=== PATIENT | male | born 1945 | race Caucasian/White ===

== ENCOUNTER 2023-06-08 13:52 | Outpatient (OUT) | payer MEDICARE, OTHER, SELFPAY ==
[2023-06-08 14:26] LABS: Estimated Average Glucose 203 mg/dL; Glycohemoglobin A1C 8.7 % (4.5-6.2)
== END 2023-06-08 13:53 | disposition home or self-care (01) ==
LOC: LAB 13:56
PROVIDERS: PCP Family Medicine; Visit Provider Family Medicine
DX: E11.65 Type 2 diabetes mellitus with hyperglycemia (principal)
CPT/HCPCS: 36415; 83036

== ENCOUNTER 2023-12-14 14:56 | Outpatient (OUT) | payer MEDICARE, OTHER, SELFPAY ==
[2023-12-14 15:18] LABS: Basophils Percent Auto 0.4 % (0.2-2.0); Eosinophils Absolute Auto 0.1 10^3/uL (0.0-0.7); Eosinophils Percent Auto 1.2 % (0.9-7.0); Hematocrit 36.3 % (42.0-54.0); Hemoglobin 11.7 g/dL (14.0-18.0); Lymphocytes Absolute Auto 2.9 10^3/uL (1.2-3.8); Lymphocytes Percent Auto 28.7 % (20.5-60.0); Mean Corpuscular HGB Conc 32.2 g/dL (29.9-35.2); Mean Corpuscular Hemoglobin 29.2 pg (25.9-34.0); Mean Corpuscular Volume 90.5 fL (80.0-94.0); Mean Platelet Volume 10.2 fL (9.5-13.5); Monocytes Absolute Auto 0.5 10^3/uL (0.3-0.8); Monocytes Percent Auto 4.6 % (1.7-12.0); Neutrophils Absolute Auto 6.4 10^3/uL (1.4-6.5); Neutrophils Percent Auto 63.1 % (43.0-75.0); Platelet Count 189 10^3/uL (150-450); Red Blood Count 4.01 10^6/uL (4.70-6.10); White Blood Count 10.1 10^3/uL (4.0-11.0)
[2023-12-14 15:23] LABS: Microalbumin Urine Random <1.3 mg/dL (<=30.0)
[2023-12-14 15:54] LABS: Alanine Aminotransferase 42 U/L (16-63); Albumin Globulin Ratio 0.9; Albumin Level 3.7 g/dL (3.4-5.0); Alkaline Phosphatase 97 U/L (46-116); Anion Gap 14.2; Aspartate Amino Transferase 46 U/L (15-37); BUN Creatinine Ratio 13.9; Bilirubin Direct 0.2 mg/dL (0.0-0.2); Bilirubin Total 0.6 mg/dL (0.2-1.0); Calcium 9.5 mg/dL (8.5-10.1); Carbon Dioxide 26.1 mmol/L (21.0-32.0); Chloride 103 mmol/L (98-107); Chol HDL Ratio 2.7; Cholesterol 96 mg/dL (<=200); Estimated GFR (African America 44 (>=60); Estimated GFR (Non-African Ame 37 (>=60); Globulin 4.1 g/dL; Glucose 179 mg/dL (74-106); HDL Cholesterol 36 mg/dL (40-60); Potassium 4.3 mmol/L (3.5-5.1); Prostate Specific Antigen Dx 1.12 ng/mL (<=4.00); Sodium 139 mmol/L (136-145); Total Protein 7.8 g/dL (6.4-8.2); Triglycerides 148 mg/dL (<=150); VLDL CHOLESTEROL 29.6 mg/dL
[2023-12-14 15:56] LABS: Estimated Average Glucose 151 mg/dL; Glycohemoglobin A1C 6.9 % (4.5-6.2)
== END 2023-12-14 14:57 | disposition home or self-care (01) ==
LOC: LAB 14:58
PROVIDERS: PCP Family Medicine; Visit Provider Family Medicine
DX: E78.5 Hyperlipidemia, unspecified (principal); E11.65 Type 2 diabetes mellitus with hyperglycemia; I10 Essential (primary) hypertension; Z79.899 Other long term (current) drug therapy; Z12.5 Encounter for screening for malignant neoplasm of prostate; E55.9 Vitamin D deficiency, unspecified
CPT/HCPCS: 36415; 80048; 80061; 80076; 82043; 82306; 83036; 84153; 84443; 85025

== ENCOUNTER 2024-06-11 14:44 | Outpatient (OUT) | payer MEDICARE, OTHER, SELFPAY ==
--- OUTSIDE RECORDS SUMMARY | 2024-06-11 15:04 | XMS_ITS | CCD ---
Author Organization [facility] Inform ion Partnership [facility] Care Team Providers Care Fugitive Detective Name Role Phone FAWWAD, TRAYLOR H Attending Unavailable FAWWAD, TRAYLOR H Admitting Unavailable FAWWAD, TRAYLOR H Primary Care Unavailable DR ADIEL TANNER V Consulting Unavailable FAWWAD, TRAYLOR H Consulting Unavailable MATT CAMARGO Attending Unavailable MATT CAMARGO Admitting Unavailable MATT CAMARGO Consulting Unavailable NADERER, DR CASH Mireles Primary Care Unavailable FAWWAD, TRAYLOR H Attending Unavailable FAWWAD, TRAYLOR H Admitting Unavailable FAWWAD, TRAYLOR H Primary Care Unavailable SETH, DR ALVARO Jarvis Consulting Unavailable NGHIA YEE Consulting Unavailable FAWWAD, TRAYLOR H Consulting Unavailable FAWWAD, TRAYLOR H Primary Care Unavailable FAWWAD, TRAYLOR H Attending Unavailable FAWWAD, TRAYLOR H Admitting Unavailable FAWWAD, TRAYLOR H Consulting Unavailable FAWWAD, TRAYLOR H Attending Unavailable FAWWAD, TRAYLOR H Admitting Unavailable FAWWAD, TRAYLOR H Primary Care Unavailable DR ALVARO REYNOLDS Consulting Unavailable FAWWAD, TRAYLOR H Consulting Unavailable FAWWAD, TRAYLOR H Primary Care Unavailable HENRRY, RJ Consulting Unavailable HENRRY, RJ Attending Unavailable HENRRY, RJ Admitting Unavailable FAWWAD, TRAYLOR H Primary Care Unavailable HENRRY, RJ Admitting Unavailable HENRRY, JR Consulting Unavailable HENRRY, RJ Attending Unavailable HENRRY, RJ Admitting Unavailable KEISHA SALESA Attending Unavailable NORIS, DR CASH Mireles Primary Care Unavailable DR ALVARO REYNOLDS Consulting Unavailable HENRRY, RJ Consulting Unavailable NORIS, DR CASH Mireles Consulting Unavailable NORIS, DR CASH Mireles Attending Unavailable NADERER, DR CASH Mireles Admitting Unavailable NADERER, DR CASH Mireles Primary Care Unavailable REINECK, DR MARISSA Reynaga Attending Unavailabl e REINECK, DR MARISSA Reynaga Admitting Unavailabl e NADERER, DR CASH Mireles Primary Care Unavailable REINECK, DR MARISSA Reynaga Consulting Unavailabl e WEST, DR ADIEL Barrett Consulting Unavailable FAWWACruzito, TRAYLOR H Primary Care Unavailable PAY ., DR STEEL Attending Unavailable PAY ., DR STEEL Admitting Unavailable PAY ., DR STEEL Consulting Unavailable EMRE ., ENDER Consulting Unavailable BROWN, MIKEY A Referring Unavailable BROWN, MIKEY A Attending Unavailable NADERER, CASH Attending Unavailable BROWN, MIKEY A Attending Unavailable BROWN, MIKEY A Attending Unavailable MANPREET, MIKEY A Attending Unavailable NORIS, CASH Primary Care Physician [phone] Manpreet, DO Mikey Mireles Attending Unavailable Manpreet, DO Mikey Mireles Referring Unavailable LEEANNAMATT Murphy Referring Unavailable JACOB, IZZY Referring Unavailable JACOB, IZZY Referring Unavailable JACOB, IZZY Referring Unavailable ETIENNE TORIBIO Attending Unavailable JACOB, IZZY Referring Unavailable JACOB, IZZY Referring Unavailable JACOB, IZZY Referring Unavailable JACOB, IZZY Referring Unavailable JACOB, IZZY Referring Unavailable JACOB, IZZY Referring Unavailable JACOB, IZZY Referring Unavailable Problems Active Problems Problem Classification Problem Date Documented Date Episodic/Chronic Acute cerebrovascular disease (4 sources) Cerebral infarction, unspecified; Translations: [CEREBRAL INFARCTION UNSPECIFIED] Onset: 04-28-2022 Chronic Cardiac dysrhythmias (5 sources) Supraventricular tachycardia; Translations: [Unspecified atrial fibrillation] Onset: 07-06-2022 Chronic Chronic kidney disease (1 source) Chronic kidney disease, unspecified; Translations: [CHRONIC KIDNEY DISEASE UNSPECIFIED] Onset: 08-19-2022 Chronic Congestive heart failure; nonhypertensive (3 sources) Unspecified diastolic (congestive) heart failure; Translations: [Chronic diastolic (congestive) heart failure] Onset: 05-02-2022 Chronic Diabetes mellitus with complications (4 sources) Type 2 diabetes mellitus with hyperglycemia; Translations: [TYPE 2 DM W/HYPERGLYCEMIA] Onset: 12-14-2022 Chronic Disorders of lipid metabolism (1 source) Hyperlipidemia, unspecified; Translations: [HYPERLIPIDEMIA UNSPECIFIED] Onset: 12-18-2022 Chronic Essential hypertension (7 sources) Essential (primary) hypertension; Translations: [ESSENTIAL PRIMARY HYPERTENSION] Onset: 04-27-2022 Chronic Heart valve disorders (1 source) Rheumatic disorders of both mitral and tricuspid valves; Translations: [RHEUMATIC D/O MITRAL TRICUSPID VALV] Onset: 08-19-2022 Chronic Hypertension with complications and secondary hypertension (1 source) Hypertensive heart and chronic kidney disease with heart failure and stage 1 through stage 4 chronic kidney disease, or unspecified chronic kidney disease; Translations: [HTN HRT CKD W/HF STAGE 1-4/UNS CKD] Onset: 08-19-2022 Chronic Nutritional deficiencies (1 source) Vitamin D deficiency, unspecified; Translations: [VITAMIN D DEFICIENCY UNSPECIFIED] Onset: 12-18-2022 Chronic Occlusion or stenosis of precerebral arteries (1 source) Occlusion and stenosis of bilateral carotid arteries; Translations: [OCCLUSION AND STENOS TATYANA CAROTID ART] Onset: 03-05-2022 Chronic Other aftercare (1 source) Other detention (current) drug therapy; Translations: [OTH ELECTRICIAN OFFICE CURRENT DRUG THERAPY] Onset: 12-18-2022 Episodic Other connective tissue disease (1 source) Hand pain; Translations: [Pain in left hand] Episodic Other connective tissue disease (1 source) Dupuytren's disease of palm; Translations: [Palmar fascial fibromatosis [Dupuytren]] Episodic Other nutritional; endocrine; and metabolic disorders (1 source) Obesity, unspecified; Translations: [OBESITY UNSPECIFIED] Onset: 12-18-2022 Chronic Other screening for suspected conditions (not mental disorders or infectious disease) (1 source) Encounter for screening for malignant neoplasm of prostate; Translations: [ENC SCREEN MALIG NEOPLASM PROSTATE] Onset: 12-18-2022 Episodic Transient cerebral ischemia (6 sources) Transient cerebral ischemic attack, unspecified; Translations: [TRANS CERBRAL ISCHEMIC ATTACK UNS] Onset: 03-12-2022 Chronic Unclassified (1 source) CONTACT W/AND (SUSP) EXPOS COVID-19; Translations: [CONTACT W/AND (SUSP) EXPOS COVID-19] Onset: 05-03-2022 Past or Other Problems Problem Classification Problem Date Documented Da te Episodic/Chronic Cardiac dysrhythmias (2 sources) Palpitations; Translations: [Palpitations] Onset: 06-18-2022 Episodic Other aftercare (1 source) 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; Translations: [ELECTRICIAN OFFICE USE ORAL HYPOGLYCEMIC DX] Onset: 08-19-2022 Episodic Other aftercare (1 source) intermediate teacher (current) use of aspirin; Translations: [GROUP HOME CURRENT USE OF ASPIRIN] Onset: 05-03-2022 Episodic Other circulatory disease (5 sources) Personal history of transient ischemic attack (TIA), and cerebral infarction without residual deficits; Translations: [PERS HX TIA AND CI NO RESID DEFICIT] Onset: 04-28-2022 Episodic Other connective tissue disease (1 source) Dupuytren's contracture Onset: 06-21-2019 06-21-2019 Episodic Comment on above: L hand small finger dupuytrens ; Other lower respiratory disease (5 sources) Other forms of dyspnea; Translations: [OTHER FORMS OF DYSPNEA] Onset: 05-10-2022 Episodic Other nervous system disorders (3 sources) Anesthesia of skin; Translations: [ANESTHESIA OF SKIN] Onset: 03-02-2022 Episodic Screening and history of mental health and substance abuse codes (1 source) Personal history of nicotine dependence; Translations: [PERSONAL HISTORY OF NICOTINE DEPEND] Onset: 08-19-2022 Episodic Results Test Name Value Interpretation Reference Range Facility OT - [place] 01-03-2024 OT - Orders [id number]# 1.00TIFF [facility] OT - Assessmentson OT - Assessments [id number]#1 .00TIFF [facility] OT - Consentson 12-28-2023 OT - Consents [id number]#1 .00TIFF [facility] OT - Otheron 12-28-2023 OT - Other [id number]#1 .00TIFF [facility] Consent for Treatmenton Consent for Treatment [id number]#1 .00TIFF [facility] OT - [place] 12-22-2023 OT - Orders [id number]# 1.00TIFF [facility] Office Visiton 08-08-2023 Follow-up visit [id number] Back,Line e 1945 M Date Provider Department Center 08/08/2023 ETIENNE ZHONG CARD [facility] Family History Problem Relation Age of Onset Heart failure Mother Heart attack Brother Family Status - Relation Status Age at Mother Brother Level of Service:77687 [place] OFFICE/OUTPATIENT ESTABLISHED MOD MDM 30 MIN Normal [facility] 36on 07-19-2023 35 Approving, but needs appt for additional refills. Normal [facility] Orders Onlyon 05-30-2023 Orders Only [id number] Back,Nereyda e 1945 M Date Provider Department Center 05/30/2023 MATT PERSAUD [facility] CARD [place] Family History Problem Relation Age of Onset Heart failure Mother Heart attack Brother Family Status - Relation Status Age at Mother Brother Normal [facility] CBC AUTO DIFFon 12-14-2022 BASO # 0.1 103/ul Normal 0.0-0.1 [facility] Comment on above: Performed By: #### C BC #### [facility] [address] [place] [address] Dr. Beto Licea Basophils/100 WBC (Bld) 0.7 % Normal 0.2-2.0 [facility] Comment on above: Performed By: #### C BC #### [facility] [address] [place] [address] Dr. Beto Licea EO # 0.2 103/ul Normal 0.0-0.7 [facility] Comment on above: Performed By: #### C BC #### [facility] [address] [address] [address] Beto Licea Eosinophils/100 WBC (Bld) 2.1 % Normal 0.9-7.0 [facility] Comment on above: Performed By: #### C BC #### [facility] [address] [address] [address] Beto Licea Erythrocyte distribution width (RBC) [Ratio] 14.5 % Normal 11.0-15.0 [facility] Comment on above: Performed By: #### C BC #### [facility] [address] [place] [address] Dr. Beto Licea Hematocrit (Bld) [Volume fraction] 33.9 % Critically low 42.0-54.0 [facility] Comment on above: Performed By: #### C BC #### [facility] [address] [place] [address] Dr. Beto Licea Hemoglobin (Bld) [Mass/Vol] 11.4 g/dL Critically low 14.0-18.0 [facility] Comment on above: Performed By: #### C BC #### [facility] [address] [place] [address] Dr. Beto Licea IG # 0.32 10e3/ul Critically high 0.00-0.03 [facility] Comment on above: Performed By: #### C BC #### [facility] [address] [place] [address] Dr. Beto Licea IG % 3.3 % Critically high 0.0-0.5 [facility] Comment on above: Performed By: #### C BC #### [facility] [address] [place] [address] Dr. Beto Licea LYMPH # 2.7 103/ul Normal 1.2-3.8 [facility] Comment on above: Performed By: #### C BC #### [facility] [address] [place] [address] Dr. Beto Licea Lymphocytes/100 WBC (Bld) 27.1 % Normal 20.5-60.0 [facility] Comment on above: Performed By: #### C BC #### [facility] [address] [place] [address] Dr. Beto Licea MANUAL DIFF REQ NO Normal [facility] Comment on above: Performed By: #### C BC #### [facility] [address] [place] [address] Dr. Beto Licea MCH (RBC) [Entitic mass] 29.3 pg Normal 25.9-34.0 [facility] Comment on above: Performed By: #### C BC #### [facility] [address] [place] [address] Dr. Beto Licea MCHC (RBC) [Mass/Vol] 33.6 g/dL Normal 29.9-35.2 [facility] Comment on above: Performed By: #### C BC #### [facility] [address] [place] [address] Dr. Beto Licea MCV (RBC) [Entitic vol] 87.1 fL Normal 80.0-94.0 [facility] Comment on above: Performed By: #### C BC #### [facility] [address] [place] [address] Dr. Beto Licea MONO # 0.5 103/ul Normal 0.3-0.8 [facility] Comment on above: Performed By: #### C BC #### [facility] [address] [place] [address] Dr. Beto Licea Monocytes/100 WBC (Bld) 4.8 % Normal 1.7-12.0 [facility] Comment on above: Performed By: #### C BC #### [facility] [address] [place] [address] Dr. Beto Licea NEUT # 6.1 103/ul Normal 1.4-6.5 [facility] Comment on above: Performed By: #### C BC #### [facility] [address] [place] [address] Dr. Beto Licea Neutrophils/100 WBC (Bld) 62.0 % Normal 43.0-75.0 [facility] Comment on above: Performed By: #### C BC #### [facility] [address] [place] [address] Dr. Beto Licea Platelet mean volume (Bld) [Entitic vol] 10.6 fL Normal 9.5-13.5 [facility] Comment on above: Performed By: #### C BC #### [facility] [address] [place] [address] Dr. Beto Licea PLT 189 103/ul Normal 150-450 [facility] Comment on above: Performed By: #### C BC #### [facility] [address] [address] [address] Beto Licea RBC 3.89 106/ul Critically low 4.70-6.10 [facility] Comment on above: Performed By: #### C BC #### [facility] [address] [address] [address] Beto Licea WBC 9.8 103/ul Normal 4.0-11.0 [facility] Comment on above: Performed By: #### C BC #### [facility] [address] [address] [address] Beto Licea GLYCOHEMOGLOBIN A1Con 2022 ADA RECOMMENDATION SEE BELOW Normal [facility] Comment on above: Result Comment: ADA RECOMMENDED LIMIT 4.0 - 6.0 ADA THERAPEUTIC TARGET < 7.0 ACTION SUGGESTED > 7.0 Performed By: #### M ALBR #### [facility] [address] [place] [address] Dr. Beto Licea Glucose [Mass/Vol] 194 mg/dL Normal [facility] Comment on above: Performed By: #### M ALBR #### [facility] [address] [place] [address] Dr. Beto Licea HbA1c (Bld) [Mass fraction] 8.4 % Critically high 4.5-6.2 [facility] Comment on above: Performed By: #### M ALBR #### [facility] [address] [place] [address] Dr. Beto Licea LIPID PROFILEon 12-14-2022 CHOL-HDL RATIO NORM SEE BELOW Normal [facility] Comment on above: Result Comment: 3.3 - 4.4 LOW RISK 4.4 - 7.1 AVERAGE RISK 7.1 - 11.0 MODERATE RISK >11.0 HIGH RISK Performed By: #### M ALBR #### [facility] [address] [place] [address] Dr. Beto Licea Cholesterol [Mass/Vol] 96 mg/dL Normal <=200 [facility] Comment on above: Performed By: #### M ALBR #### [facility] [address] [address] [address] Beto Licea Cholesterol in HDL [Mass/Vol] 28 mg/dL Critically low 40-60 [facility] Comment on above: Performed By: #### M ALBR #### [facility] [address] [address] [address] Beto Licea Cholesterol in LDL [Mass/Vol] 44.0 mg/dL Normal [facility] Comment on above: Performed By: #### M ALBR #### [facility] [address] [address] [address] Beto Licea Cholesterol.total/Ch olesterol in HDL [Mass ratio] 3.4 {ratio} Normal [facility] Comment on above: Performed By: #### M ALBR #### [facility] [address] [place] [address] Dr. Beto Licea HDL NORMAL > or = 60 mg/dl - LO W CARDIOVASCULAR RISK <40 mg/dl - HIGH CARDIOVASCULAR RISK Normal [facility] Comment on above: Performed By: #### M ALBR #### [facility] [address] [place] [address] Dr. Beto Licea LDL CALC NORMAL SEE BELOW Normal [facility] Comment on above: Result Comment: <100 mg/dl OPTIMAL 100 - 129 mg/dl NEAR OR ABOVE OPTIMAL 130 - 159 mg/dl BORDERLINE HIGH 160 - 189 mg/dl HIGH >190 mg/dl VERY HIGH Performed By: #### M ALBR #### [facility] [address] [place] [address] Dr. Beto Licea Triglyceride [Mass/Vol] 120 mg/dL Normal <=150 [facility] Comment on above: Performed By: #### M ALBR #### [facility] [address] [place] [address] Dr. Beto Licea VLDL CALC 24.0 mg/dL Normal [facility] Comment on above: Performed By: #### M ALBR #### [facility] [address] [place] [address] Dr. Beto Licea LIVER PROFILEon 12-14-2022 Albumin [Mass/Vol] 3.4 g/dL Normal 3.4-5.0 [facility] Comment on above: Performed By: #### M ALBR #### [facility] [address] [place] [address] Dr. Bteo Licea Albumin/Globulin [Mass ratio] 0.7 {ratio} Normal [facility] Comment on above: Performed By: #### M ALBR #### [facility] [address] [place] [address] Dr. Beto Licea ALP [Catalytic activity/Vol] 98 U/L Normal 46-116 [facility] Comment on above: Performed By: #### M ALBR #### [facility] [address] [place] [address] Dr. Beto Licea ALT [Catalytic activity/Vol] 34 U/L Normal 16-63 [facility] Comment on above: Performed By: #### M ALBR #### [facility] [address] [place] [address] Dr. Beto Licea AST [Catalytic activity/Vol] 36 U/L Normal 15-37 [facility] Comment on above: Performed By: #### M ALBR #### [facility] [address] [place] [address] Dr. Beto Licea BILI, CONJUGATED 0.2 mg/dL Normal 0.0-0.[address] [facility] Comment on above: Performed By: #### M ALBR #### [facility] [address] [place] [address] Dr. Beto Licea Bilirubin [Mass/Vol] 0.8 mg/dL Normal 0.2-1.0 [facility] Comment on above: Performed By: #### M ALBR #### [facility] [address] [place] [address] Dr. Beto Licea Globulin (S) [Mass/Vol] 4.6 g/dL Normal [facility] Comment on above: Performed By: #### M ALBR #### [facility] [address] [place] [address] Dr. Beto Lciea Protein [Mass/Vol] 8.0 g/dL Normal 6.4-8.2 [facility] Comment on above: Performed By: #### M ALBR #### [facility] [address] [address] [address] Beto Licea MICROALBUMIN, RAND URon 04-2 mALB 2.1 mg/L Normal <=30.0 [facility] Comment on above: Performed By: #### M ALBR #### [facility] [address] [address] [address] Beto Licea PROF CHEM 8 (BAS METB)on Anion gap [Moles/Vol] 16.2 mmol/L Normal [facility] Comment on above: Performed By: #### M ALBR #### [facility] [address] [place] [address] Dr. Beto Licea Calcium [Mass/Vol] 9.3 mg/dL Normal 8.5-10.1 [facility] Comment on above: Performed By: #### M ALBR #### [facility] [address] [place] [address] Dr. Beto Licea Chloride [Moles/Vol] 100 mmol/L Normal 98-107 [facility] Comment on above: Performed By: #### M ALBR #### [facility] [address] [place] [address] Dr. Beto Licea CO2 [Moles/Vol] 23.5 mmol/L Normal 21.0-32.0 [facility] Comment on above: Performed By: #### M ALBR #### [facility] [address] [place] [address] Dr. Beto Licea Creatinine [Mass/Vol] 1.86 mg/dL Critically high 0.70-1.30 [facility] Comment on above: Performed By: #### M ALBR #### [facility] [address] [place] [address] Dr. Beto Licea EGFR-AF CAMBODIAN 43 mL/min/1.73m2 Critically low >=60 [facility] Comment on above: Performed By: #### M ALBR #### [facility] [address] [address] [address] Beto Licea EGFR-NON AF CAMBODIAN 35 mL/min/1.73m2 Critically low >=60 [facility] Comment on above: Performed By: #### M ALBR #### [facility] [address] [address] [address] Beto Licea Glucose [Mass/Vol] 272 mg/dL Critically high 74-106 [facility] Comment on above: Performed By: #### M ALBR #### [facility] [address] [address] [address] Beto Licea Potassium [Moles/Vol] 4.7 mmol/L Normal 3.5-5.1 [facility] Comment on above: Performed By: #### M ALBR #### [facility] [address] [address] [address] Beto Licea Sodium [Moles/Vol] 135 mmol/L Critically low 136-145 [facility] Comment on above: Performed By: #### M ALBR #### [facility] [address] [address] [address] Beto Licea Urea nitrogen [Mass/Vol] 29.0 mg/dL Critically high 7.0-18.0 [facility] Comment on above: Performed By: #### M ALBR #### [facility] [address] [address] [address] Beto Licea Urea nitrogen/Creatinine [Mass ratio] 15.6 mg/mg Normal [facility] Comment on above: Performed By: #### M ALBR #### [facility] [address] [address] [address] Beto Licea TSHon 12-14-2022 TSH 1.626 uIU/mL Normal 0.358-3.740 [facility] Comment on above: Performed By: #### M ALBR #### [facility] [address] [address] [address] Beto Licea VITAMIN D 25 OHon 12-14-2022 VIT D 25-OH 43.0 ng/mL Normal [facility] Comment on above: Performed By: #### P SASC, VITAD #### [facility] [address] [place], [place] [address] Dr. Beto Licea VIT D RANGES SEE BELOW Normal [facility] Comment on above: Result Comment: <20 ng/mL Vit D deficient 20 - <30 ng/mL Vit D insufficient 30 - 100 ng/mL Vit D sufficient >100 ng/mL Potential Toxicity Performed By: #### P SASC, VITAD #### [facility] [address] [place], [place] [address] Dr. Beto Licea NM STRESS/REST MULTIon 05-10 NM STRESS/REST MULTI Patient: CASSIUS NORWOOD Exam Date: 05/10/2022 : 1945 Gender:M Ordering : RJ SALES [facility] Admission #: [id number] Family : DR. MARLI FLANAGAN D.O. Order #: [id number] CLICK HERE TO VIEW EXAM RADIOLOGY REPORT PROCEDURE: RADIONUCLIDE IMAGING STRESS/REST MULTI COMPARISON: None. INDICATIONS: Dyspnea TECHNIQUE: Exam Description: Stress/Rest one day protocol gated SPECT Rest Imagin.9 mCi Tc-99m Cardiolite IV on 05/10/2022 Stress Imaging 32.6 mCi Tc-99m Cardiolite IV on 05/10/2022 Exercise Protocol: 0.4 mg Lexiscan given IV Heart Rate (bpm): Rest: 64 Max: 98 PMHR: 68 Blood Pressure: Rest: 140/70 Max: 140/70 Symptoms: Rest and peak stress ECG findings were normal and the exercise portion of the study was normal per attending physician Dr. Greer . For more details please see separate cardiac stress test report. FINDINGS: QUALITY OF STUDY: Excellent. PERFUSION DEFECT: LOCATION: Basal inferior. Mid-inferior. Apical anterior. SIZE: Medium (3-4 segments). SEVERITY: Moderate. TYPE: Persistent. WALL MOTION: Normal. LV SIZE: Normal. 75 mL. TID / TCD: None; 0.8 LVEF: Normal. Calculated EF 67%. SUMMARY: Myocardial perfusion imaging study has ABNORMAL findings. CONCLUSION: 1. No acute or reversible ischemia. 2. Diaphragm attenuation artifact versus fixed perfusion defect of the inferior wall. 3. Normal wall motion and ejection fraction. 4. No abnormal enlargement of left ventricle. Dictated by: Alvaro Reynolds M.D. on 05/10/2022 at 12:21 Approved by: Alvaro Reynolds M.D. on 05/10/2022 at 12:26 Normal [facility] BNPon 04-28-2022 Natriuretic peptide B (Bld) [Mass/Vol] 127.0 pg/mL Normal <=1,800.0 [facility] Comment on above: Performed By: #### B RUG CLEANER, HSTROPN, CMP #### [facility] [address] [place] [address] Dr. Beto Licea CBC AUTO DIFFon 04-28-2022 BASO # 0.0 103/ul Normal 0.0-0.1 [facility] Comment on above: Performed By: #### M ALBR #### [facility] [address] [place] [address] Dr. Beto Licea Basophils/100 WBC (Bld) 0.4 % Normal 0.2-2.0 [facility] Comment on above: Performed By: #### M ALBR #### [facility] [address] [place] [address] Dr. Beto Licea EO # 0.1 103/ul Normal 0.0-0.7 [facility] Comment on above: Performed By: #### M ALBR #### [facility] [address] [place] [address] Dr. Beto Licea Eosinophils/100 WBC (Bld) 0.9 % Normal 0.9-7.0 [facility] Comment on above: Performed By: #### M ALBR #### [facility] [address] [place] [address] Dr. Beto Licea Erythrocyte distribution width (RBC) [Ratio] 13.5 % Normal 11.0-15.0 [facility] Comment on above: Performed By: #### M ALBR #### [facility] [address] [place] [address] Dr. Beto Licea Hematocrit (Bld) [Volume fraction] 36.4 % Critically low 42.0-54.0 [facility] Comment on above: Performed By: #### M ALBR #### [facility] [address] [place] [address] Dr. Beto Licea Hemoglobin (Bld) [Mass/Vol] 12.3 g/dL Critically low 14.0-18.0 [facility] Comment on above: Performed By: #### M ALBR #### [facility] [address] [place] [address] Dr. Beto Licea IG # 0.10 10e3/ul Critically high 0.00-0.03 [facility] Comment on above: Performed By: #### M ALBR #### [facility] [address] [place] [address] Dr. Beto Licea IG % 1.0 % Critically high 0.0-0.5 [facility] Comment on above: Performed By: #### M ALBR #### [facility] [address] [place] [address] Dr. Beto Licea LYMPH # 1.7 103/ul Normal 1.2-3.8 [facility] Comment on above: Performed By: #### M ALBR #### [facility] [address] [place] [address] Dr. Beto Licea Lymphocytes/100 WBC (Bld) 17.8 % Critically low 20.5-60.0 [facility] Comment on above: Performed By: #### M ALBR #### [facility] [address] [place] [address] Dr. Beto Licea MANUAL DIFF REQ NO Normal [facility] Comment on above: Performed By: #### M ALBR #### [facility] [address] [place] [address] Dr. Beto Licea MCH (RBC) [Entitic mass] 29.5 pg Normal 25.9-34.0 [facility] Comment on above: Performed By: #### M ALBR #### [facility] [address] [place] [address] Dr. Beto Licea MCHC (RBC) [Mass/Vol] 33.8 g/dL Normal 29.9-35.2 [facility] Comment on above: Performed By: #### M ALBR #### [facility] [address] [address] [address] Beto Licea MCV (RBC) [Entitic vol] 87.3 fL Normal 80.0-94.0 [facility] Comment on above: Performed By: #### M ALBR #### [facility] [address] [address] [address] Beto Licea MONO # 0.4 103/ul Normal 0.3-0.8 [facility] Comment on above: Performed By: #### M ALBR #### [facility] [address] [place] [address] Dr. Beto Licea Monocytes/100 WBC (Bld) 4.1 % Normal 1.7-12.0 [facility] Comment on above: Performed By: #### M ALBR #### [facility] [address] [place] [address] Dr. Beto Licea NEUT # 7.4 103/ul Critically high 1.4-6.5 [facility] Comment on above: Performed By: #### M ALBR #### [facility] [address] [place] [address] Dr. Beto Licea Neutrophils/100 WBC (Bld) 75.8 % Critically high 43.0-75.0 [facility] Comment on above: Performed By: #### M ALBR #### [facility] [address] [place] [address] Dr. Beto Licea Platelet mean volume (Bld) [Entitic vol] 10.6 fL Normal 9.5-13.5 [facility] Comment on above: Performed By: #### M ALBR #### [facility] [address] [place] [address] Dr. Beto Licea PLT 152 103/ul Normal 150-450 [facility] Comment on above: Performed By: #### M ALBR #### [facility] [address] [place] [address] Dr. Beto Licea RBC 4.17 106/ul Critically low 4.70-6.10 [facility] Comment on above: Performed By: #### M ALBR #### [facility] [address] [place], [place] [address] Dr. Beto Licea WBC 9.7 103/ul Normal 4.0-11.0 [facility] Comment on above: Performed By: #### M ALBR #### [facility] [address] [place], [place] [address] Dr. Beto Licea Covid-19 PCR ([facility])on SARS-CoV-2 (COVID-19) RNA CHIKI+probe Ql (Unsp spec) Not detected Normal NOT DETECTED [facility] Comment on above: Result Comment: When diagnostic testing is negative, the possibility of a false negative should be considered in the context of a patient's recent exposures and the presence of clinical signs and symptoms consistent with SARS-CoV-2. This test is not yet approved or cleared by the [place] FDA. When there are no FDA-approved or cleared tests available, and other criteria are met, FDA can make tests available under an emergency access mechanism called an Emergency Use Authorization (EUA). The EUA for this test is supported by the Assisted Living Manager of Health and Human Service's declaration that circumstances exist to justify the emergency use of in vitro diagnostics for the detection and/or diagnosis of the virus that causes COVID-19. This EUA will remain in effect for the duration of the COVID-19 declaration justifying emergency of IVDs, unless it is terminated or revoked by the FDA (after which the test may no longer be used). Performed By: #### C VDTB #### [facility] [address] [place] [address] [id number] [address] Beto Licea ECHOCARDIO M/2D COMPLETEon 0 04-28-2022 ECHOCARDIO M/2D COMPLETE Patient: CASSIUS NORWOOD Exam Date: 04/28/2022 : 1945 Gender:M Ordering : [facility] Admission #: [id number] Family : Order #: [id number] CLICK HERE TO VIEW EXAM ECHOCARDIOGRAM REPORT PROCEDURE: CARDIO PULMONARY ECHOCARDIO M/2D COMP INDICATIONS: History of transient ischemic attack, hypertension, diabetes COMPARISON: None. DESCRIPTION: COMPLETE ECHOCARDIOGRAM Real-time transthoracic echocardiography with 2D, M-mode, spectral and color flow Doppler performed. QUALITY: Technical quality was good. 72 232# BP 158/70 LEFT VENTRICLE: Normal chamber size. Thickened septal wall. Mild concentric hypertrophy. Normal overall systolic function. No segmental wall motion abnormalities seen. LV EF: Normal left ventricular ejection fraction, (>55%). DIASTOLIC: Grade I diastolic dysfunction. ATRIAL SEPTUM: Agitated saline contrast does not reveal an intra-cardiac shunt. LEFT ATRIUM: Normal chamber size. RIGHT ATRIUM: Mild dilatation. RIGHT VENTRICLE: Normal chamber size. TRICUSPID VALVE: Normal mobility and thickness. No stenosis with mild regurgitation. Doppler studies reveal mildly (35-45) elevated right sided pressures. RVSP 36 mmHg MITRAL VALVE: Mildly thickened with normal mobility. No evidence of mitral valve stenosis. There is no mitral annular calcification. Trivial mitral regurgitation. AORTIC VALVE: Normal trileaflet appearance. Thickened aortic valve. Normal leaflet mobility. No aortic regurgitation. AORTIC ROOT: Normal in size measuring 3.5 cm. Mildly dilated ascending aorta (3.7 cm). PULMONIC VALVE: Not well visualized. No stenosis. No regurgitation. PERICARDIUM: No evidence of pericardial effusion. IVC: Collapses with inspirations. PLEURA: CONCLUSION: 1. Normal ventricular systolic function. LVEF is 55%. 2. Mild diastolic dysfunction. 3. No significant valvular abnormalities seen. 4. Mildly elevated right-sided pressures. 5. No evidence of intracardiac shunt by agitated saline injections. 6. Mildly dilated ascending aorta measuring 3.7 cm. Adult Echocardiography Procedure Report Left Ventricle Left Atrium Mitral Valve Right Ventricle Aorta Aortic Valve Peak Velocity (Antegrade Flow): 1.06 m/s AoV Area (Peak Abhijeet): 4.79 cm2, 4.79 cm2 Tricuspid Valve Peak Velocity (Regurgitant Flow): 2.87 m/s Peak Velocity: 0.48 m/s Pulmonic Valve Peak Velocity: 1.43 m/s Peak Gradient: 8.14 mm[Hg] Right Atrium Dictated by: Amadeo Garduno M.D. on 04/28/2022 at 18:37 Approved by: Amadeo Garduno M.D. on 04/28/2022 at 18:42 Normal [facility] MRI BRAIN WO CONon 2 MRI BRAIN WO CON EXAMINATION: MRI BRAIN WO CON, 04/28/2022 12:11 PM EDT HISTORY: Cerebral infarction COMPARISON: MRI brain 03/09/2022 TECHNIQUE: MRI of the brain was performed without IV contrast. FINDINGS: CEREBRUM: Large area of increased T1 and T2 signal, and restricted diffusion involving the left occipital lobe, 5.1 x 3.1 x 2.7 cm suggestive of ischemic infarction with subacute hemorrhagic components. No appreciable mass. Several small areas of increased T2 signal within the periventricular deep white matter which are unchanged and favors chronic small vessel ischemic changes. CEREBELLUM: No edema, hemorrhage, mass, acute infarction, or inappropriate atrophy. BRAINSTEM: No edema, hemorrhage, mass, acute infarction, or inappropriate atrophy. CSF SPACES: Ventricles, cisterns, and sulci are appropriate for age. No hydrocephalus, subarachnoid hemorrhage, or mass. SKULL: No mass or other significant visible lesion. SINUSES: Limited views demonstrate no significant mucosal thickening or fluid. ORBITS: Limited views are unremarkable. OTHER: Negative. IMPRESSION: 1. Large area of the left occipital lobe demonstrating findings suggestive of prior ischemic infarction with development of subacute hemorrhagic components (1-4 weeks). This is new since 03/09/2022. Study placed in the stat call folder. Electronically authenticated by: ALVARO REYNOLDS Date: 2022-04-28 13:38 Normal [facility] PROF 14(COMP METB)on 022 Albumin [Mass/Vol] 3.7 g/dL Normal 3.4-5.0 [facility] Comment on above: Performed By: #### B KASSIE, JEFFRY, CMP #### [facility] [address] [address] [address] Beto Licea Albumin/Globulin [Mass ratio] 0.8 {ratio} Normal [facility] Comment on above: Performed By: #### B KASSIE, MELYTRNEEL, CMP #### [facility] [address] [address] [address] Beto Licea ALP [Catalytic activity/Vol] 103 U/L Normal 46-116 [facility] Comment on above: Performed By: #### B KASSIE, JEFFRY, CMP #### [facility] [address] [address] [address] Beto Licea ALT [Catalytic activity/Vol] 45 U/L Normal 16-63 [facility] Comment on above: Performed By: #### B KASSIE, MELYTRNEEL, CMP #### [facility] [address] [address] [address] Beto Licea Anion gap [Moles/Vol] 13.9 mmol/L Normal [facility] Comment on above: Performed By: #### B RUG CLEANER, HSTROPN, CMP #### [facility] [address] [place] [address] Dr. Beto Licea AST [Catalytic activity/Vol] 40 U/L Critically high 15-37 [facility] Comment on above: Performed By: #### B RUG CLEANER, HSTROPN, CMP #### [facility] [address] [place] [address] Dr. Beto Licea Bilirubin [Mass/Vol] 0.9 mg/dL Normal 0.2-1.0 [facility] Comment on above: Performed By: #### B RUG CLEANER, HSTROPN, CMP #### [facility] [address] [place] [address] Dr. Beto Licea Calcium [Mass/Vol] 9.5 mg/dL Normal 8.5-10.1 [facility] Comment on above: Performed By: #### B RUG CLEANER, HSTROPN, CMP #### [facility] [address] [place] [address] Dr. Beto Licea Chloride [Moles/Vol] 97 mmol/L Critically low 98-107 [facility] Comment on above: Performed By: #### B RUG CLEANER, HSTROPN, CMP #### [facility] [address] [address] [address] Beto Licea CO2 [Moles/Vol] 24.4 mmol/L Normal 21.0-32.[address] [facility] Comment on above: Performed By: #### B RUG CLEANER, HSTROPN, CMP #### [facility] [address] [place] [address] Dr. Beto Licea Creatinine [Mass/Vol] 1.40 mg/dL Critically high 0.70-1.30 [facility] Comment on above: Performed By: #### B RUG CLEANER, HSTROPN, CMP #### [facility] [address] [address] [address] Beto Licea EGFR-AF CAMBODIAN =60 Normal >=[address] [facility] Comment on above: Performed By: #### B RUG CLEANER, HSTROPN, CMP #### [facility] [address] [address] [address] Beto Licea EGFR-NON AF CAMBODIAN 49 mL/min/1.73m2 Critically low >=60 [facility] Comment on above: Performed By: #### B RUG CLEANER, HSTROPN, CMP #### [facility] [address] [place] [address] Dr. Beto Licea Globulin (S) [Mass/Vol] 4.5 g/dL Normal [facility] Comment on above: Performed By: #### B RUG CLEANER, HSTROPN, CMP #### [facility] [address] [place] [address] Dr. Beto Licea Glucose [Mass/Vol] 395 mg/dL Critically high 74-106 [facility] Comment on above: Performed By: #### B RUG CLEANER, HSTROPN, CMP #### [facility] [address] [place] [address] Dr. Beto Licea Potassium [Moles/Vol] 4.3 mmol/L Normal 3.5-5.1 [facility] Comment on above: Performed By: #### B RUG CLEANER, HSTROPN, CMP #### [facility] [address] [place] [address] Dr. Beto Licea Protein [Mass/Vol] 8.2 g/dL Normal 6.4-8.2 [facility] Comment on above: Performed By: #### B RUG CLEANER, HSTROPN, CMP #### [facility] [address] [address] [address] Beto Licea Sodium [Moles/Vol] 131 mmol/L Critically low 136-145 [facility] Comment on above: Performed By: #### B RUG CLEANER, HSTROPN, CMP #### [facility] [address] [address] [address] Beto Licea Urea nitrogen [Mass/Vol] 23.0 mg/dL Critically high 7.0-18.0 [facility] Comment on above: Performed By: #### B RUG CLEANER, HSTROPN, CMP #### [facility] [address] [place] [address] Dr. Beto Licea Urea nitrogen/Creatinine [Mass ratio] 16.4 mg/mg Normal [facility] Comment on above: Performed By: #### B RUG CLEANER, HSTROPN, CMP #### [facility] [address] [place] [address] Dr. Beto Licea TROPONIN, HIGH SENSITIVITYon 04-28-2022 HSTROP 45.3 pg/mL Normal 4.0-76.1 [facility] Comment on above: Result Comment: CUT- OFF POINTS HAVE BEEN ESTABLISHED BASED ON THE FOURTH UNIVERSAL DEFINITIONS OF MYOCARDIAL INFARCTION. THE UPPER REFERENCE LIMIT (URL) OF TROPONIN, DEFINED THE 99TH PERCENTILE OF cTnI DISTRIBUTION IN A REFERENCE POPULATION, HAS BEEN CONFIRMED THE DECISION THRESHOLD FOR VA DIAGNOSIS. Performed By: #### B RUG CLEANER, HSTROPN, CMP #### [facility] [address] [place] [address] Dr. Beto Licea PROF CHEM 8 (BAS METB)on Anion gap [Moles/Vol] 13.2 mmol/L Normal [facility] Comment on above: Performed By: #### M ALBR #### [facility] [address] [place] [address] Dr. Beto Licea Calcium [Mass/Vol] 9.1 mg/dL Normal 8.5-10.1 [facility] Comment on above: Performed By: #### M ALBR #### [facility] [address] [place] [address] Dr. Beto Licea Chloride [Moles/Vol] 97 mmol/L Critically low 98-107 [facility] Comment on above: Performed By: #### M ALBR #### [facility] [address] [place] [address] Dr. Beto Licea CO2 [Moles/Vol] 26.8 mmol/L Normal 21.0-32.[address] [facility] Comment on above: Performed By: #### M ALBR #### [facility] [address] [address] [address] Beto Licea Creatinine [Mass/Vol] 1.48 mg/dL Critically high 0.70-1.30 [facility] Comment on above: Performed By: #### M ALBR #### [facility] [address] [address] [address] Beto Licea EGFR-AF CAMBODIAN 56 mL/min/1.73m2 Critically low >=60 [facility] Comment on above: Performed By: #### M ALBR #### [facility] [address] [address] [address] Beto Licea EGFR-NON AF CAMBODIAN 46 mL/min/1.73m2 Critically low >=60 [facility] Comment on above: Performed By: #### M ALBR #### [facility] [address] [address] [address] Beto Licea Glucose [Mass/Vol] 320 mg/dL Critically high 74-106 T [facility] Comment on above: Performed By: #### M ALBR #### [facility] [address] [address] [address] Beto Licea Potassium [Moles/Vol] 4.0 mmol/L Normal 3.5-5.1 [facility] Comment on above: Performed By: #### M ALBR #### [facility] [address] [address] [address] Beto Licea Sodium [Moles/Vol] 133 mmol/L Critically low 136-145 [facility] Comment on above: Performed By: #### M ALBR #### [facility] [address] [address] [address] Beto Licea Urea nitrogen [Mass/Vol] 26.0 mg/dL Critically high 7.0-18.0 [facility] Comment on above: Performed By: #### M ALBR #### [facility] [address] [address] [address] Beto Licea Urea nitrogen/Creatinine [Mass ratio] 17.6 mg/mg Normal [facility] Comment on above: Performed By: #### M ALBR #### [facility] [address] [place], [place] [address] Dr. Beto Licea ECHOCARDIO M/2D COMPLETEon 0 03-12-2022 ECHOCARDIO M/2D COMPLETE Patient: CASSIUS NORWOOD Exam Date: 03/12/2022 : 1945 Gender:M Ordering : SHAIKH [place] REYNOLDS . Admission #: [id number] Family : Order #: [id number] CLICK HERE TO VIEW EXAM ECHOCARDIOGRAM REPORT PROCEDURE: CARDIO PULMONARY ECHOCARDIO M/2D COMP INDICATIONS: TIA COMPARISON: None. DESCRIPTION: COMPLETE ECHOCARDIOGRAM Real-time transthoracic echocardiography with 2D, M-mode, spectral and color flow Doppler performed. QUALITY: Technical quality was good. 72 245# BP 136/64 HR 73 LEFT VENTRICLE: Normal chamber size. Mild concentric left ventricular hypertrophy. LV EF: Normal left ventricular ejection fraction, (>55%). DIASTOLIC: Diastolic function is indeterminate. ATRIAL SEPTUM: LEFT ATRIUM: Normal chamber size. RIGHT ATRIUM: Normal chamber size. RIGHT VENTRICLE: Normal chamber size. Normal right ventricular systolic function. TRICUSPID VALVE: Normal mobility and thickness. No stenosis with no regurgitation. MITRAL VALVE: Mildly thickened with normal mobility. No evidence of mitral valve stenosis. There is no mitral annular calcification. Trivial mitral regurgitation. AORTIC VALVE: Normal trileaflet appearance. Mildly calcified aortic valve. Normal leaflet mobility. No evidence of aortic valve stenosis. No aortic regurgitation. AORTIC ROOT: Normal diameter and appearance. Ascending aorta is normal in size. PULMONIC VALVE: Normal thickness and mobility. No stenosis. Trivial regurgitation. PERICARDIUM: No evidence of pericardial effusion. IVC: Collapses with inspirations. IVC is normal in size. PLEURA: CONCLUSION: 1. Mild concentric left ventricular hypertrophy. 2. Normal ventricular systolic function. LVEF is 60%. 3. No significant valvular dysfunction. 4. No pericardial effusion. Dictated by: Amadeo Garduno M.D. on 03/12/2022 at 18:00 Approved by: Amadeo Garduno M.D. on 03/12/2022 at 18:03 Normal [facility] MRI BRAIN WO CONon 2 MRI BRAIN WO CON EXAMINATION: MRI BRAIN WO CON, 03/09/2022 8:17 AM EDT HISTORY: Transient cerebral ischemia COMPARISON: None. TECHNIQUE: MRI of the brain was performed without IV contrast. FINDINGS: CEREBRUM: Several small T2 hyperintensities scattered within the periventricular and subcortical deep white matter bilaterally. No edema, hemorrhage, mass, acute infarction, or inappropriate atrophy. CEREBELLUM: No edema, hemorrhage, mass, acute infarction, or inappropriate atrophy. BRAINSTEM: No edema, hemorrhage, mass, acute infarction, or inappropriate atrophy. CSF SPACES: Ventricles, cisterns, and sulci are appropriate for age. No hydrocephalus, subarachnoid hemorrhage, or mass. SKULL: No mass or other significant visible lesion. SINUSES: Limited views demonstrate no significant mucosal thickening or fluid. ORBITS: Limited views are unremarkable. OTHER: Negative. IMPRESSION: 1. No evidence of acute ischemia. 2. Scattered small T2 hyperintensities within the deep white matter favoring chronic small vessel ischemic changes. 3. Age consistent atrophy. Electronically authenticated by: ALVARO REYNOLDS Date: 2022-03-10 07:39 Normal [facility] XR FOREIGN BODY EYEon 2021 XR FOREIGN BODY EYE EXAM: XR FOREIGN BOD Y EYE HISTORY: Foreign body in eye COMPARISON: CT of the head from 03/02/2022 TECHNIQUE: AP and lateral radiographs of the facial bones. FINDINGS: The teeth are absent. No radiopaque foreign body in the region of the orbits. No fracture identified. IMPRESSION: No radiopaque foreign body in the region of the orbits. Electronically authenticated by: LUIS PAIZ Date: 2022-03-09 08:44 Normal [facility] US CAROTID ART BILon 022 US CAROTID ART TATYANA EXAMINATION: US CAROTID ART TATYANA HISTORY: Transient cerebral ischemia COMPARISON: No relevant comparison available. TECHNIQUE: Duplex Doppler ultrasound analysis of carotid and vertebral arteries. . Bilateral carotid arterial duplex examination was performed using B-mode, color flow and spectral analysis. Carotid stenosis is reported according to validated velocity parameters, similar to NASCET criteria. FINDINGS: RIGHT CAROTID ARTERY Mild atherosclerotic plaque in the carotid bulb Subclavian: PSV: 124.0 cm/s cm/s EDV: 0.0 cm/s cm/s CCA: Prox: PSV: 104.4 cm/s cm/s EDV: 13.9 cm/s cm/s Mid: PSV: 87.5 cm/s cm/s EDV: 13.7 cm/s cm/s Distal: PSV: 53.7 cm/s cm/s EDV: 11.0 cm/s cm/s BULB: PSV: 43.8 cm/s cm/s EDV: 9.0 cm/s cm/s ICA: Prox: PSV: 52.3 cm/s cm/s EDV: 14.9 cm/s cm/s Mid: PSV: 53.4 cm/s cm/s EDV: 18.2 cm/s cm/s Distal: PSV: 68.8 cm/s cm/s EDV: 16.0 cm/s cm/s ECA: PSV: 180.0 cm/s cm/s EDV: 12.8 cm/s cm/s VERTEBRAL: PSV: 35.4 cm/s cm/s EDV: 10.1 cm/s cm/s ICA/CCA ratio: PSV: 0.8 EDV: 1.2 LEFT CAROTID ARTERY Mild to moderate atherosclerotic plaque proximal internal carotid artery Subclavian: PSV: 98.4 cm/s cm/s EDV: 0.0 cm/s CCA: Prox: PSV: 123.4 cm/s cm/s EDV: 18.9 cm/s Mid: PSV: 101.7 cm/s cm/s EDV: 17.0 cm/s Distal: PSV: 68.1 cm/s cm/s EDV: 12.4 cm/s BULB: PSV: 74.5 cm/s cm/s EDV: 11.1 cm/s ICA: Prox: PSV: 66.8 cm/s cm/s EDV: 17.6 cm/s Mid: PSV: 66.8 cm/s cm/s EDV: 18.9 cm/s Distal: PSV: 66.8 cm/s cm/s EDV: 22.8 cm/s ECA: PSV: 64.6 cm/s cm/s EDV: 8.9 cm/s VERTEBRAL: PSV: 46.8 cm/s cm/s EDV: 9.2 cm/s ICA/CCA ratio: PSV: 0.7 EDV: 0.7 IMPRESSION: 0-49% flow stenosis in the internal carotid arteries Spectral Doppler US Thresholds (Reference: Rusty EG, et al. Radiology 2000; 214:247-252) Stenosis (%) PSV (cm/sec) VICA/VCCA 0-49 <150 <2.5 50-69 150-225 2.5-4.0 >70 >225 >4.0 Electronically authenticated by: ADIEL TANNER Date: 2022-03-04 22:04 Normal [facility] CBC AUTO DIFFon 03-02-2022 BASO # 0.0 103/ul Normal 0.0-0.1 [facility] Comment on above: Performed By: #### M ALBR #### [facility] [address] [place] [address] Dr. Beto Licea Basophils/100 WBC (Bld) 0.7 % Normal 0.2-2.0 [facility] Comment on above: Performed By: #### M ALBR #### [facility] [address] [place] [address] Dr. Beto Licea EO # 0.1 103/ul Normal 0.0-0.7 [facility] Comment on above: Performed By: #### M ALBR #### [facility] [address] [address] [address] Beto Licea Eosinophils/100 WBC (Bld) 2.0 % Normal 0.9-7.0 [facility] Comment on above: Performed By: #### M ALBR #### [facility] [address] [place] [address] Dr. Beto Licea Erythrocyte distribution width (RBC) [Ratio] 12.8 % Normal 11.0-15.0 [facility] Comment on above: Performed By: #### M ALBR #### [facility] [address] [place] [address] Dr. Beto Licea Hematocrit (Bld) [Volume fraction] 40.3 % Critically low 42.0-54.0 [facility] Comment on above: Performed By: #### M ALBR #### [facility] [address] [place] [address] Dr. Beto Licea Hemoglobin (Bld) [Mass/Vol] 13.4 g/dL Critically low 14.0-18.0 [facility] Comment on above: Performed By: #### M ALBR #### [facility] [address] [place] [address] Dr. Beto Licea IG # 0.10 10e3/ul Critically high 0.00-0.03 [facility] Comment on above: Performed By: #### M ALBR #### [facility] [address] [place] [address] Dr. Beto Licea IG % 1.6 % Critically high 0.0-0.5 [facility] Comment on above: Performed By: #### M ALBR #### [facility] [address] [place] [address] Dr. Beto Licea LYMPH # 2.0 103/ul Normal 1.2-3.8 [facility] Comment on above: Performed By: #### M ALBR #### [facility] [address] [place] [address] Dr. Beto Licea Lymphocytes/100 WBC (Bld) 33.1 % Normal 20.5-60.0 [facility] Comment on above: Performed By: #### M ALBR #### [facility] [address] [place] [address] Dr. Beto Licea MANUAL DIFF REQ NO Normal [facility] Comment on above: Performed By: #### M ALBR #### [facility] [address] [place] [address] Dr. Beto Licea MCH (RBC) [Entitic mass] 29.5 pg Normal 25.9-34.0 [facility] Comment on above: Performed By: #### M ALBR #### [facility] [address] [address] [address] Beto Licea MCHC (RBC) [Mass/Vol] 33.3 g/dL Normal 29.9-35.2 [facility] Comment on above: Performed By: #### M ALBR #### [facility] [address] [place] [address] Dr. Beto Licea MCV (RBC) [Entitic vol] 88.6 fL Normal 80.0-94.0 [facility] Comment on above: Performed By: #### M ALBR #### [facility] [address] [address] [address] Beto Licea MONO # 0.3 103/ul Normal 0.3-0.8 [facility] Comment on above: Performed By: #### M ALBR #### [facility] [address] [place] [address] Dr. Beto Licea Monocytes/100 WBC (Bld) 4.1 % Normal 1.7-12.0 [facility] Comment on above: Performed By: #### M ALBR #### [facility] [address] [place] [address] Dr. Beto Licea NEUT # 3.6 103/ul Normal 1.4-6.5 [facility] Comment on above: Performed By: #### M ALBR #### [facility] [address] [place] [address] Dr. Beto Licea Neutrophils/100 WBC (Bld) 58.5 % Normal 43.0-75.0 [facility] Comment on above: Performed By: #### M ALBR #### [facility] [address] [place] [address] Dr. Beto Licea Platelet mean volume (Bld) [Entitic vol] 10.8 fL Normal 9.5-13.5 [facility] Comment on above: Performed By: #### M ALBR #### [facility] [address] [place] [address] Dr. Beto Licea PLT 142 103/ul Critically low 150-450 [facility] Comment on above: Performed By: #### M ALBR #### [facility] [address] [place] [address] Dr. Beto Licea RBC 4.55 106/ul Critically low 4.70-6.10 [facility] Comment on above: Performed By: #### M ALBR #### [facility] [address] [place] [address] Dr. Beto Licea WBC 6.1 103/ul Normal 4.0-11.0 [facility] Comment on above: Performed By: #### M ALBR #### [facility] [address] [place] [address] HEAD WO CONon 03-02-2022 CT HEAD WO CON EXAMINATION: CT HEAD WO CON, 03/02/2022 10:29 AM EDT HISTORY: WEAKNESS COMPARISON: None. TECHNIQUE: CT scan of the head was performed without IV contrast. CT dose reduction technique was used, including Automated Exposure Control. FINDINGS: BRAIN: Mild generalized supratentorial atrophy. Mild scattered white matter hypoattenuation, bilateral incidental basal ganglia calcifications. No focal parenchymal mass or hemorrhage. CSF SPACES: No hydrocephalus, subarachnoid hemorrhage, or mass. Appropriate for age. SKULL: No fracture, mass, or other significant visible lesion. SINUSES: No significant mucosal thickening or fluid on the limited views. ORBITS: No appreciable abnormality on the limited views. OTHER: Negative IMPRESSION: Atrophy and white matter disease. Chronic small vessel ischemic changes are favored No acute intracranial abnormality Electronically authenticated by: ADIEL TANNER Date: 2022-03-02 11:14 Normal [facility] PROF 14(COMP METB)on 022 Albumin [Mass/Vol] 4.0 g/dL Normal 3.4-5.0 [facility] Comment on above: Performed By: #### C VDTBH #### [facility] [address] [place] [address] Dr. Beto Licea Albumin/Globulin [Mass ratio] 1.0 {ratio} Normal [facility] Comment on above: Performed By: #### C VDTBH #### [facility] [address] [place] [address] Dr. Beto Licea ALP [Catalytic activity/Vol] 87 U/L Normal 46-116 [facility] Comment on above: Performed By: #### C VDTBH #### [facility] [address] [address] [address] Beto Licea ALT [Catalytic activity/Vol] 86 U/L Critically high 16-63 [facility] Comment on above: Performed By: #### C VDTBH #### [facility] [address] [place] [address] Dr. Beto Licea Anion gap [Moles/Vol] 14.6 mmol/L Normal [facility] Comment on above: Performed By: #### C VDTBH #### [facility] [address] [address] [address] Beto Licea AST [Catalytic activity/Vol] 86 U/L Critically high 15-37 [facility] Comment on above: Performed By: #### C VDTBH #### [facility] [address] [address] [address] Beto Licea Bilirubin [Mass/Vol] 0.7 mg/dL Normal 0.2-1.0 [facility] Comment on above: Performed By: #### C VDTBH #### [facility] [address] [address] [address] Beto Licea Calcium [Mass/Vol] 9.5 mg/dL Normal 8.5-10.1 [facility] Comment on above: Performed By: #### C VDTBH #### [facility] [address] [place] [address] Dr. Beto Licea Chloride [Moles/Vol] 102 mmol/L Normal 98-107 [facility] Comment on above: Performed By: #### C VDTBH #### [facility] [address] [address] [address] Beto Licea CO2 [Moles/Vol] 25.7 mmol/L Normal 21.0-32.[address] [facility] Comment on above: Performed By: #### C VDTBH #### [facility] [address] [place] [address] Dr. Beto Licea Creatinine [Mass/Vol] 1.51 mg/dL Critically high 0.70-1.30 [facility] Comment on above: Performed By: #### C VDTBH #### [facility] [address] [address] [address] Beto Licea EGFR-AF CAMBODIAN 55 mL/min/1.73m2 Critically low >=60 [facility] Comment on above: Performed By: #### C VDTBH #### [facility] [address] [address] [address] Beto Licea EGFR-NON AF CAMBODIAN 45 mL/min/1.73m2 Critically low >=60 [facility] Comment on above: Performed By: #### C VDTBH #### [facility] [address] [address] [address] Beto Licea Globulin (S) [Mass/Vol] 4.0 g/dL Normal [facility] Comment on above: Performed By: #### C VDTBH #### [facility] [address] [address] [address] Beto Licea Glucose [Mass/Vol] 294 mg/dL Critically high 74-106 [facility] Comment on above: Performed By: #### C VDTBH #### [facility] [address] [place] [address] Dr. Beto Licea Potassium [Moles/Vol] 4.3 mmol/L Normal 3.5-5.1 [facility] Comment on above: Performed By: #### C VDTBH #### [facility] [address] [place] [address] Dr. Beto Licea Protein [Mass/Vol] 8.0 g/dL Normal 6.4-8.2 [facility] Comment on above: Performed By: #### C VDTBH #### [facility] [address] [place] [address] Dr. Beto Licea Sodium [Moles/Vol] 138 mmol/L Normal 136-145 [facility] Comment on above: Performed By: #### C VDTBH #### [facility] [address] [place] [address] Dr. Beto Licea Urea nitrogen [Mass/Vol] 27.0 mg/dL Critically high 7.0-18.0 [facility] Comment on above: Performed By: #### C VDTBH #### [facility] [address] [place] [address] Dr. Beto Licea Urea nitrogen/Creatinine [Mass ratio] 17.9 mg/mg Normal [facility] Comment on above: Performed By: #### C VDTBH #### [facility] [address] [place] [address] Dr. Beto Licea PROTIMEon 03-02-2022 INR Coag (PPP) [Relative time] 1.07 {INR} Normal [facility] Comment on above: Performed By: #### P TT, PT #### [facility] [address] [place] [address] Dr. Beto Licea INR GUIDELINES SEE BELOW Normal [facility] Comment on above: Result Comment: JONATAN RED INR: 2.0 - 3.0 CONDITIONS NOT LISTED BELOW 2.5 - 3.5 FOR PROSTHETIC HEART VALVE REPLACEMENT 2.5 - 3.5 RECURRENT THROMBOSIS Performed By: #### P TT, PT #### [facility] [address] [address] [address] Beto Licea PT Coag (PPP) [Time] 11.5 s Normal 9.0-11.6 [facility] Comment on above: Performed By: #### P TT, PT #### [facility] [address] [place] [address] Dr. Beto Licea PTTon 03-02-2022 aPTT Coag (Bld) [Time] 26.6 s Normal 22.3-36.2 [facility] Comment on above: Performed By: #### P TT, PT #### [facility] [address] [place] [address] Dr. Beto Licea Encounters Encounter Date Encounter Type Care Provider Facility Start: 05-24-2024 [facility] Start: 03-26-2024 ambulatory [facility] Start: 01-26-2024 ambulatory [facility] Start: 01-26-2024 [facility] Start: 01-26-2024 [facility] Start: 01-03-2024 End: 01-03-2024 ambulatory MIKEY CASE Not Available Start: 12-22-2023 End: 03-22-2024 ambulatory MIKEY CASE Not Available Start: 12-22-2023 End: 03-22-2024 Recurring Mikey Case [facility] Start: 12-20-2023 End: 12-20-2023 ambulatory MIKEY CASE Not Available Start: 12-14-2023 End: 12-14-2023 ambulatory CASH HAMM Not Available Start: 11-03-2023 End: 11-03-2023 ambulatory MIKEY ACSE Not Available Start: 08-08-2023 End: 08-08-2023 ambulatory [facility] Start: 12-14-2022 End: 12-15-[address] CASH HAMM Facility:[facility] Start: 07-06-2022 End: 07-06-2022 ambulatory MATT MCDONNELLCKO Facility:[facility] Start: 05-10-2022 End: 05-11-2022 ambulatory RJ SALES Facility:[facility] Start: 04-28-2022 End: 04-28-2022 ambulatory TRAYLOR Connor FASlavatoreWACruzito Facility:[facility] Start: 04-28-2022 End: 04-29-2022 ambulatory TRAYLOR H FASalvatoreWAD Facility:[facility] Start: 04-28-2022 End: 04-29-2022 ambulatory TRAYLOR H FASalvatoreWACruzito Facility:[facility] Start: 04-27-2022 End: 04-28-2022 ambulatory TRAYLOR H FAWWAD Facility:[facility] Start: 03-12-2022 End: 03-13-2022 ambulatory TRAYLOR H FAWWAD Facility:[facility] Start: 03-09-2022 End: 03-10-2022 ambulatory TRAYLOR H FAWWAD Facility:[facility] Start: 03-04-2022 End: 03-05-2022 ambulatory TRAYLOR Connor FASalvatoreWAD Facility:[facility] Start: 03-02-2022 End: 03-02-[address] MARISSA CHUNG Facility:[facility] Procedures Date Procedure Procedure Detail Performing Clinician Start: 12-14-2022 PSA screening SHAIKH DELROY KASPER Comment on above: Performed By: #### P JEANNA CLARK #### [facility] [address] [place] [address] Dr. Beto Licea Payers Date Payer Category Payer Medicare [id number] 1960 Medicare [id number] 1960 Unknown [id number] 1945 Unknown [id number] 2.16.84 [id number] 1944 Unknown [id number] 2.16.84 0.1.661750.3.579.2.593 1944 Unknown [id number] 2.16.84 0.1.972081.3.579.2.593 1944 Unknown [id number] 2.16.84 0.1.940183.3.579.2.593 1944 Unknown [id number] 2.16.84 0.1.470270.3.579.2.593 1944 Unknown [id number] 2.16.84 0.1.754689.3.579.2.593 1944 Unknown [id number] 2.16.84 0.1.215989.3.579.2.593 1944 Unknown [id number] 2.16.84 0.1.115518.3.579.2.593 1944 Unknown [id number] 2.16.84 0.1.380278.3.579.2.593 1944 Unknown [id number] 2.16.84 0.1.186364.3.579.2.593 1944 Unknown [id number] 2.16.84 0.1.317061.3.579.2.593 1944 Unknown [id number] 2.16.84 0.1.237916.3.579.2.1259 1944 Unknown [id number] 2.16.84 0.1.265157.3.579.2.1259 1944 Unknown [id number] 2.16.84 0.1.152346.3.579.2.1259 1944 Unknown [id number] 2.16.84 0.1.350850.3.579.2.1259 1944 Unknown [id number] 2.16.84 0.1.393537.3.579.2.1259 1944 Unknown [id number] 2.16.84 0.1.314323.3.579.2.1259 1944 Unknown [id number] 2.16.8 40.1.184195.3.579.2.727 Social History Date Type Detail Facility Tobacco smoking status No Smoking Status Entered [facility] Sex Assigned At Male [facility] Progress note 08-08-2023 Note Date & Type Note Facility 08-08-2023 Note [place] Cardiology Consul t Note Reason for Consultation: CVA/ NSVT 08/08/23: He is here for follow up Loop monitor shows several events of AF but all appears to be SR with PAC He denies any recent CP, SOB, JUNA, Le edema 06/11/[address] camargo HPI: Cassius Norwood is a 77 y.o. year old with past medical history of TIA and dizziness. He uses a cane for balance. He has some JUAN with heavier exertion. He reports having a cardiac cath in 1983, no stents placed He denies c/o chest pain, dyspnea at rest, orthopnea, PND, LE edema, palpitations. He was seeb by [employer] and a Holter was placed. PMHx: HTN, TIA, SVT, HFpEF, CKD FMHx: mother - HF (passed at age 51); brother - [place], 65; half brother - VA, aneurysm, passed around age 77 Social: lives at home with ETOH: rare Tobacco: former smoker, quit in 1983 Illicit drugs: denies Diet: home cooked meals Exercise: stays active, walks frequent TESTING: Echo 03/12/2022 1. Mild concentric left ventricular hypertrophy 2. Normal ventricular systolic function, LVEF is 60% 3. No significant valvular dysfunction 4. No pericardial effusion Holter monitor 03/09/2022: Observed rhythms were sinus bradycardia sinus tachycardia, bradycardia was noted during sleeping hours with lowest heart rate at 49, there were 11 occurrences of SVT with longest episode 11 beats and the fastest episode was at 157 bpm, PVC burden was 0.05%, P SVC burden of 1.41% No a.fib noted EKG 03/09/2022: SR, occasional premature supraventricular complexes Carotid US 03/04/2022: 0-49% flow stenosis in the internal carotid arteries Echo 2014 1. Mild to moderate concentric LVH, estimated EF 60% 2. Normal RV size and function 3. Mild biatrial enlargement 4. Trace MR 5. Mild TR 6. Trace AI PMH: No past medical history on file. PSH: Past Surgical History: Procedure Laterality Date MRA HEAD WO IV CONTRAST 04/29/2022 MRA HEAD WO IV CONTRAST 04/29/2022 MRA NECK W AND WO IV CONTRAST 04/29/2022 MRA NECK W AND WO IV CONTRAST 04/29/2022 SH: Social Determinants of Health Tobacco Use: Medium Risk (08/05/2023) Patient History Smoking Tobacco Use: Former Smokeless Tobacco Use: Never Passive Exposure: Not on file Alcohol Use: Not on file Financial Resource Strain: Not on file Food Insecurity: Not on file Transportation Needs: Not on file Physical Activity: Not on file Stress: Not on file Social Connections: Not on file Intimate Partner Violence: Not on file Depression: Not on file Housing Stability: Not on file Meds: Current Outpatient Medications on File Prior to Visit Medication Sig Dispense Refill atorvastatin (Lipitor) 40 mg tablet Take 40 mg by mouth at bedtime. clopidogrel (Plavix) 75 mg tablet Take by mouth in the morning. furosemide (Lasix) 20 mg tablet Take 20 mg by mouth in the morning. glipiZIDE (Glucotrol) 10 mg tablet Take 10 mg by mouth before breakfast and before evening meal. lisinopril 20 mg tablet Take 1 tablet by mouth once daily 90 tablet 0 metFORMIN (Glucophage) 500 mg tablet Take 500 mg by mouth with breakfast and with evening meal. metoprolol succinate XL (Toprol-XL) 50 mg 24 hr tablet Take 1 tablet (50 mg) by mouth in the morning. 90 tablet 3 omeprazole (PriLOSEC) [address] capsule Take 40 mg by mouth before breakfast. Do not crush or chew. No current facility-administered medications on file prior to visit. ROS: Cardio Basic Cardiovascular Symptoms: no lightheadedness, no leg edema, no syncope, no orthopnea, no PND, no claudication, Constitutional Constitutional: no fever, no night sweats, no significant weight gain, no significant weight loss, no exercise intolerance Eyes Eyes: no dry eyes, no irritation, no vision change ENMT Ears: no difficulty hearing, no ear pain Nose: no frequent nosebleeds, Mouth/Throat: no sore throat, no bleeding gums, no snoring, no dry mouth, no mouth ulcers, no oral abnormalities, no teeth problems Respiratory Respiratory: no cough, no wheezing, no coughing up blood, no sleep apnea Musculoskeletal Musculoskeletal: no muscle aches, no muscle weakness, joint pain+, no back pain, no swelling in the extremities Integumentary Skin no rash, no ulcer, no varicosities, no discoloration, no pruritus Neurologic Neurologic: no loss of consciousness, no weakness, no numbness, no seizures, no dizziness, no headaches Psychiatric Psych: no depression, feeling safe in relationship, no alcohol abuse, Hematologic/Lymphatic Hematologic/Lymphatic no swollen glands, no bruising Physical Exam: Constitutional General Appearance: well-nourished, well-developed, appears stated age Level of Distress: comfortable Psychiatric Mental Status: alert, normal affect Orientation: oriented to time, place, and person Insight: good judgement Eyes Lids and Conjunctivae: non-injected, no xanthelasma ENMT Ears: no lesions on externa (more content not included)... [facility] Progress note 08-08-2023 Note Date & Type Note Facility 08-08-2023 Note Patient here for 1 y ear follow up NSVT, hypertension, and cryptogenic stroke. Denies chest pain, palpitations, and lightheadedness. JUAN remains unchanged from previous visit in Jun 2022. Review of Systems Cardiovascular: Positive for dyspnea on exertion. Musculoskeletal: Positive for arthritis, back pain, joint pain and stiffness. All other systems reviewed and are negative. [facility] Clinical Note 07-06-2022 Note Date & Type Note Facility 07-06-2022 Note OPERATIVE NOTE OPERATION DATE: 07/06/2022 LOOP IMPLANT PROCEDURE NOTE DATE OF PROCEDURE: 07/06/2022 PERFORMING PHYSICIAN: Dr. Matt Camargo INDICATIONS FOR PROCEDURE: 1. AF surveillance CONSENT: Patient presented for a loop implant. He underwent a [employer] Loop Implant. LOCATION: PROCEDURAL SEDATION: None FLUOROSCOPY TIME: 0 min PREPARATION: Preoperative antibiotics were administered. PROCEDURES PERFORMED: 1. LOOP implant. PROCEDURE NOTE: Patient was brought to the EP lab in the post absorptive state. A procedural pause was performed verifying the patient, the procedure. Sterile prep and drape were performed over the left precordium and anesthesia with 1% lidocaine was followed by a small incision was made in the 3rd intercostal space near the sternum on the left using the [employer] tool. The loop recorder was then injected subcutaneously and noted to have good sensing parameters. Technical details of the device as noted below. The skin was then closed with 3- 0 absorbable monofilament suture and glue applied to hold the edges together. Tegaderm was applied to cover the wound. The patient appeared to tolerate the procedure well and was returned to the room in stable condition. No complications were immediately observed. LOOP details: Device Model: M301 Serial#: The serial number is [id number]. Sensin.3 mV. IMPRESSION: Successful placement of LOOP implant with excellent sensing parameters. RECOMMENDATIONS: 1. Occlusive dressing to be changed after 7 days. 2. Do not wet the incision. Matt Camargo M.D. Cardiac Electrophysiology [facility] Clinical Note 05-10-2022 Note Date & Type Note Facility 05-10-2022 Note CARDIAC STRESS TEST Requesting Physician: Procedure Date:05/10/2022 INDICATION: Dyspnea on exertion. METHODS: After risks, benefits and alternatives were explained, written informed consent was obtained. The patient was brought to the Stress Lab in a resting and fasting state. He was connected to the appropriate hemodynamic and electrocardiographic monitoring. Lexiscan 0.4 mg was infused intravenously. The patient was monitored for the standard duration and discharged in a stable state. There were no complications. FINDINGS: HEMODYNAMICS: Resting heart rate was 64 beats per minute, increasing to a maximum of 98 beats per minute. Resting blood pressure was 140/70, decreasing to 122/64. ELECTROCARDIOGRAPHY: Rest EKG: Sinus rhythm, 62 beats per minute. Cannot rule out anteroseptal infarct, age indeterminate. Abnormal resting EKG. During infusion and recovery: Non-specific upsloping ST depressions are seen. No significant arrhythmias note. FINAL IMPRESSIONS: 1. No ischemic EKG changes seen on Lexiscan Pharmacological Stress Test. 2. Nuclear images are to be read, interpreted and reported in a separate dictation. [facility] Evaluation + Plan note Note Date & Type Note Facility Evaluation + Plan note No data available for this section [facility] Hospital Discharge instructions Note Date & Type Note Facility Hospital Discharge instructions No data available for this section [facility] Progress note Note Date & Type Note Facility Progress note No data available for this section [facility] Summary Purpose Family History No Family History Records FoundNo Family History Records Found No data available for this section No Family History Records FoundNo Family History Records Found Advance Directives No Advanced Directives Records FoundNo Advanced Directives Records FoundNo Advanced Directives Records FoundNo Advanced Directives Records Found Additional Source Comments (unrecognized sect ion and content) No Status Records FoundNo Status Records FoundNo Status Records FoundNo Status Records Found INFORMATION SOURCE (unrecogn ized section and content) DATE CREATED AUTHOR 12/18/2022 [facility] DATE CREATED AUTHOR AUTHOR'S ORGANIZ ATION 01/05/2024 [facility] EPIC DATE CREATED AUTHOR AUTHOR'S ORGANIZ ATION 03/25/2024 [facility] DATE CREATED AUTHOR AUTHOR'S ORGANIZ ATION 05/26/2024 [facility] Patient Care team informatio n (unrecognized section and content) Personnel Name: CASH HAMM MD Address: Address: [address] [place] [id number] FOR RECORDS PERTAINING TO PATIENTS WHO ARE OR HAVE BEEN ENROLLED IN A CHEMICAL DEPENDENCY/SUBSTANCEABUSE PROGRAM, SOME INFORMATION MAY BE OMITTED. This clinical summary was aggregated from multiple sources. Caution should be exercised in using it in the provision of clinical care. This summary normalizes information from multiple sources, and as a consequence, information in this document may materially change the coding, format and clinical context of patient data. In addition, data may be omitted in some cases. CLINICAL DECISIONS SHOULD BE BASED ON THE PRIMARY CLINICAL RECORDS. [facility]. provides no warranty or guarantee of the accuracy or completeness of information in this document.
[2024-06-11 15:15] LABS: Estimated Average Glucose 157 mg/dL; Glycohemoglobin A1C 7.1 % (4.5-6.2)
== END 2024-06-11 14:45 | disposition home or self-care (01) ==
LOC: LAB 14:46
PROVIDERS: PCP Family Medicine; Visit Provider Family Medicine
DX: E11.65 Type 2 diabetes mellitus with hyperglycemia (principal)
CPT/HCPCS: 36415; 83036

== ENCOUNTER 2025-01-28 15:42 | Outpatient (OUT) | payer MEDICARE, SELFPAY ==
[2025-01-28 16:22] LABS: Basophils Percent Auto 0.4 % (0.2-2.0); Eosinophils Absolute Auto 0.1 10^3/uL (0.0-0.7); Eosinophils Percent Auto 1.6 % (0.9-7.0); Hematocrit 34.3 % (42.0-54.0); Hemoglobin 11.6 g/dL (14.0-18.0); Immature Granulocytes Abs Auto 0.24 10^3/uL (0.00-0.03); Immature Granulocytes Pct Auto 3.3 % (0.0-0.5); Lymphocytes Absolute Auto 2.4 10^3/uL (1.2-3.8); Lymphocytes Percent Auto 32.6 % (20.5-60.0); Mean Corpuscular HGB Conc 33.8 g/dL (29.9-35.2); Mean Corpuscular Hemoglobin 30.5 pg (25.9-34.0); Mean Corpuscular Volume 90.3 fL (80.0-94.0); Monocytes Absolute Auto 0.3 10^3/uL (0.3-0.8); Monocytes Percent Auto 4.5 % (1.7-12.0); Neutrophils Absolute Auto 4.2 10^3/uL (1.4-6.5); Neutrophils Percent Auto 57.6 % (43.0-75.0); Platelet Count 150 10^3/uL (150-450); Red Cell Distribution Width 13.8 % (11.0-15.0); White Blood Count 7.4 10^3/uL (4.0-11.0)
[2025-01-28 17:00] LABS: Estimated Average Glucose 163 mg/dL; Glycohemoglobin A1C 7.3 % (4.5-6.2)
[2025-01-28 17:03] LABS: Creatinine Urine Random 112.03 mg/dL (20.00-300.00); Microalbum Creatinine Ratio Ur 48.2 mg/g (0.0-29.9); Microalbumin Urine Random 5.4 mg/dL (<=30.0)
[2025-01-28 17:11] LABS: Alanine Aminotransferase 43 U/L (16-63); Albumin Level 3.6 g/dL (3.4-5.0); Alkaline Phosphatase 90 U/L (46-116); Anion Gap 13.4; Aspartate Amino Transferase 53 U/L (15-37); BUN Creatinine Ratio 18.7; Bilirubin Direct 0.2 mg/dL (0.0-0.2); Bilirubin Total 0.6 mg/dL (0.2-1.0); Calcium 9.2 mg/dL (8.5-10.1); Carbon Dioxide 26.9 mmol/L (21.0-32.0); Chloride 103 mmol/L (98-107); Chol HDL Ratio 2.3; Cholesterol 84 mg/dL (<=200); Estimated GFR (African America >60 (>=60 mL/min/1.73m^2); Estimated GFR (Non-African Ame 51 (>=60 mL/min/1.73m^2); Globulin 3.7 g/dL; Glucose 147 mg/dL (74-106); HDL Cholesterol 37 mg/dL (40-60); Potassium 4.3 mmol/L (3.5-5.1); Sodium 139 mmol/L (136-145); Thyroid Stimulating Hormone 1.731 uIU/mL (0.358-3.740); Total Protein 7.3 g/dL (6.4-8.2); Triglycerides 153 mg/dL (<=150); VLDL CHOLESTEROL 30.6 mg/dL
[2025-01-28 17:30] LABS: Prostate Specific Antigen Scrn 1.07 ng/mL (<=4.00)
== END 2025-01-28 15:43 | disposition home or self-care (01) ==
PROVIDERS: PCP Family Medicine; Visit Provider Family Medicine
DX: E78.5 Hyperlipidemia, unspecified (principal); E11.65 Type 2 diabetes mellitus with hyperglycemia; E55.9 Vitamin D deficiency, unspecified; N18.32 Chronic kidney disease, stage 3b; Z79.899 Other long term (current) drug therapy; Z12.5 Encounter for screening for malignant neoplasm of prostate; E66.811 Obesity, class 1; E66.09 Other obesity due to excess calories
CPT/HCPCS: 36415; 80048; 80061; 80076; 82043; 82306; 82570; 83036; 84443; 85025; G0103

== ENCOUNTER 2025-08-06 08:49 | Outpatient (OUT) | payer MEDICARE, SELFPAY ==
--- OUTSIDE RECORDS SUMMARY | 2025-08-06 08:55 | XMS_ITS | Clinical Summary ---
Author Organization [facility] Address [address] [place] [address] Care Team Providers Care Toy Consultant Name Role Phone Romero Montoya MD Primary Care Provider [phone] Romero Montoya MD Unavailable Allergies No known active allergies Medications MedicationSigDispense QuantityRefillsLast FilledStart DateEnd DateStatus lisinopril 20 MG tablet Indications:Type 2 diabetes mellitus with hyperglycemia, unspecified whether roasterman insulin use (HCC),Chronic diastolic heart failure (HCC), Cerebrovascular accident (CVA) due to occlusion of cerebral artery (HCC)Take 1 tablet (20 mg) by mouth Daily 90 tablet 5026Active clopidogrel (Plavix) 75 MG tablet Indications:Cerebrovascular accident (CVA) due to occlusion of cerebral artery (HCC)Take 1 tablet by mouth once daily 90 tablet 5Active metoprolol succinate XL (Toprol-XL) 50 MG 24 hr tablet Take 50 mg by mouth in the morning.5Active glipiZIDE (Glucotrol) 10 MG tablet Indications:Type 2 diabetes mellitus with hyperglycemia, without long-term current use of insulin (HCC)TAKE 1 TABLET BY MOUTH TWICE DAILY (MORNING AND BEDTIME) 180 tablet 5Active Lancets misc Indications:Type 2 diabetes mellitus without complication, unspecified whether correction insulin use (HCC)Test once daily 100 each 5Active glucose blood (Contour Next Test) test strip Indications:Type 2 diabetes mellitus without complication, unspecified whether correction insulin use (HCC)1 each by Other route Daily 100 each 5Active furosemide (Lasix) 20 MG tablet Indications:Chronic diastolic heart failure (HCC)Take 1 tablet by mouth once daily 90 tablet 5Active metFORMIN XR (Glucophage-XR) 500 MG 24 hr tablet Indications:Type 2 diabetes mellitus with hyperglycemia, unspecified whether correction insulin use (HCC)TAKE 1 TABLET BY MOUTH TWICE DAILY (IN THE MORNING AND BEDTIME) 180 tablet 5Active atorvastatin (Lipitor) 40 MG tablet Indications:DyslipidemiaTake 1 tablet by mouth once daily 90 tablet 5Active Active Problems ProblemNoted DateDiagnosed DateEssential hypertension, pvptas0712/14/2023 Assessment & Plan (01/28/2025 3:20 PM EDT): BP controlled and monitor PRN. Assessment & Plan (06/11/2024 1:44 PM EDT): BP controlled and monitor PRN. Assessment & Plan (12/14/2023 2:24 PM EDT): BP controlled and monitor PRN. Chronic diastolic heart zzlrxla3212/14/2023 Assessment & Plan (01/28/2025 3:20 PM EDT): Edema stable and use lasix PRN. Elevate legs PRN. Assessment & Plan (06/11/2024 1:43 PM EDT): Edema stable and use lasix PRN. Elevate legs PRN. Assessment & Plan (12/14/2023 2:24 PM EDT): Edema stable and use lasix PRN. Elevate legs PRN. Boafbnlekwjb85/24/2024Gastroesophageal reflux rzkdodi1412/14/2023 Assessment & Plan (01/28/2025 3:20 PM EDT): Symptoms controlled with OTC and continue. Assessment & Plan (06/11/2024 1:44 PM EDT): Symptoms controlled with OTC and continue. Assessment & Plan (12/14/2023 2:24 PM EDT): Symptoms controlled with OTC and continue. Ischemic stroke of frontal lobe12/14/2023rimary osteoarthritis of left shoulder 12/14/2023Stage 3b chronic kidney disease (CKD)12/14/2023Type 2 diabetes mellitus with hyperglycemia, without long-term current use of dsmkiad7312/14/2023 Assessment & Plan (01/28/2025 3:20 PM EDT): Reports BS okay and due for A1C. Stick to ADA diet and limit carbs. Assessment & Plan (06/11/2024 1:44 PM EDT): Reports BS okay and due for A1C. Stick to ADA diet and limit carbs. Assessment & Plan (12/14/2023 2:25 PM EDT): Reports BS okay and due for A1C. Stick to ADA diet and limit carbs. Vitamin D adlvmdjvvk40/24/2024Encounter for long-term current use of medication 12/14/2023Screening PSA (prostate specific antigen)4Class 1 obesity due to excess calories with serious comorbidity and body mass index (BMI) of 33.0 to 33.9 in adult12/14/2023 Assessment & Plan (01/28/2025 3:20 PM EDT): Weight loss indicated. Cerebrovascular accident (CVA) due to occlusion of cerebral zqwfxv1907/26/2023 Family History Medical HistoryRelationNameCommentsHeart diseaseMotherDiabetesOtherSpouse HypertensionOtherSpouseCancerSiblingHeart diseaseSiblingRelationNameStatus CommentsDaughterAliveFatherDeceasedMotherDeceasedOtherSpouseAliveSiblingAliveSon Alive Social History Tobacco UseTypesPacks/DayYears UsedDateSmoking Tobacco: FormerCigarettesQuit: 1986Smokeless Tobacco: Never Tobacco Cessation:Counseling Given: Not Answered Alcohol UseStandard Drinks/WeekCommentsNever0 (1 standard drink = 0.6 oz pure alcohol)caffeine intake: 1-2 cups per day coffeeSex and Gender InformationValue Date RecordedSex Assigned at BirthNot on fileLegal SbyTmla1411/03/2022 6:47 PM EDT Gender IdentityNot on fileSexual OrientationNot on file Last Filed Vital Signs Vital SignReadingTime TakenCommentsBlood Gvxbmzuu770/5806 3:01 PM EDT Wnvhy189601/28/2025 3:01 PM BKQSlxbixpvgov21.4 ??C (97.5 ??F)01/28/2025 3:01 PM EDTRespiratory Yziy770401/28/2025 3:01 PM EDTOxygen Vvrzuadgri43%01/28/2025 3:01 PM EDTInhaled Oxygen Concentration--Avmyso841 kg (245 lb)01/28/2025 3:01 PM EDT Ilsxca097.9 cm (6')01/28/2025 3:01 PM EDTBody Mass Index33.23001/28/2025 3:01 PM EDT Plan of Treatment Health MaintenanceDue DateLast DoneCommentsPneumococcal Vaccine: 65+ Years (1 of 2 - PCV)1963Diabetes: Hemoglobin A1C/OVID-19 Vaccine ( - season)2025Influenza Vaccine (#1)Medicare Annual Wellness (AWV) (Patient Refused)Diabetes: Urine Protein Bqjxwdqam22/04/2025, 12/14/2023iabetes: Retinopathy Screening Insurance * Guarantor: Danielito WeberAccount TypeRelation to PatientDate of BirthPhone Billing AddressPersonal/CcaqvkQcnh[birth year][id number] [address] Care Teams Team MemberRelationshipSpecialtyStart DateEnd Date Romero Montoya MD [facility] - [facility] Romero Montoya MD [address] [place] [address] PCP - Medical [facility]08/22/2511
--- OUTSIDE RECORDS SUMMARY | 2025-08-06 08:55 | XMS_ITS | Clinical Summary ---
Author Organization [facility] Address [address], [address] [place] [address] Care Team Providers Care Excel Expert Name Role Phone Marshall Newsome DO Primary Care Provider Allergies No known active allergies Medications MedicationSigDispense QuantityRefillsLast FilledStart DateEnd DateStatus furosemide (LASIX) 20 MG tablet Take 20 mg by mouth daily.Active NONFORMULARY Take 10 mg by mouth daily. ramiprilActive aspirin 325 MG tablet Take 325 mg by mouth daily.Active dicloxacillin (DYNAPEN) 250 MG capsule Take 250 mg by mouth 4 times daily.Active Active Problems ProblemNoted DateDiagnosed DateEndophthalmitis, right eye04/12/2013 Family History Medical DnpbqdlUbcmiwkjYvdcKyvikzcwDfwlyrPsrurv24yzwuh tumorHeart DiseaseMother 86RoywbozaBdasDuurqlJejbnvzcFzfevt18Rssqdy62 Social History Tobacco UseTypesPacks/DayYears UsedDateSmoking Tobacco: FormerAlcohol Use Standard Drinks/WeekCommentsYes0 (1 standard drink = 0.6 oz pure alcohol) ocasional 1-2 x a yearSex and Gender InformationValueDate RecordedSex Assigned at BirthNot on fileLegal FwyMnjk5610/03/2012 5:46 AM ESTGender IdentityNot on file Sexual OrientationNot on file Last Filed Vital Signs Vital SignReadingTime TakenCommentsBlood Qkdwcumk481/7610 10:00 AM EDT Conlf6168 10:00 AM FFNSmzbixggbjg69 ??C (96.8 ??F)05/30/2013 9:34 AM EDT Respiratory Nipw3188 9:45 AM EDTOxygen Gbtyibysuv92%05/30/2013 10:00 AM EDTInhaled Oxygen Concentration--Eeabgp199.9 kg (260 lb)05/30/2013 8:13 AM EDT Gydsqo435.9 cm (6')05/30/2013 8:13 AM EDTBody Mass Index35.261 8:13 AM EDT Plan of Treatment Not on file Care Teams Team MemberRelationshipSpecialtyStart DateEnd Date House, Marshall Garcia, [address] [place] [address] [facility]04/12/13
--- OUTSIDE RECORDS SUMMARY | 2025-08-06 08:55 | XMS_ITS | Clinical Summary ---
Author Organization [employer] [facility] [employer] Address [id number] [address] [place] [address] Care Team Providers Care Unarmed Security Officer Name Role Phone Romero Montoya MD Primary Care Provider [phone] Allergies No known active allergies Medications MedicationSigDispense QuantityRefillsLast FilledStart DateEnd DateStatus atorvastatin (LIPITOR) 10 mg tablet Take 10 mg by mouth in the morning.03/02/2022ctive furosemide (LASIX) 20 mg tablet Take 20 mg by mouth daily.04/18/2022ctive lisinopriL (PRINIVIL,ZESTRIL) 20 mg tablet Take 20 mg by mouth in the morning.04/13/2022ctive metFORMIN XR (GLUCOPHAGE XR) 500 mg 24 hr tablet Take 500 mg by mouth in the morning.04/18/2022ctive metoprolol succinate XL (TOPROL XL) 50 mg 24 hr tablet Take 50 mg by mouth in the morning.04/15/2022ctive aspirin 81 mg chewable tablet Chew 81 mg and swallow in the morning.03/04/2022ctive insulin glargine (LANTUS U-100 INSULIN) 100 unit/mL injection Inject 0.22 mL (22 Units total) under the skin in the morning and 0.22 mL (22 Units total) before bedtime. 10 mL 04/30/2022ctive insulin lispro (HumaLOG) 100 unit/mL injection Inject 0.08-0.15 mL (8-15 Units total) under the skin in the morning and 0.08- 0.15 mL (8-15 Units total) at noon and 0.08-0.15 mL (8-15 Units total) in the evening. Inject before meals. Inject 15 units before regular sized meals and 8 units before small meals.. 10 mL 1209ctive blood sugar diagnostic (glucose blood) strip 1 strip by other route as needed for high blood sugar. 100 strip 109ctive Active Problems ProblemNoted DateDiagnosed DateAcute ischemic yafcah1104/28/2022 Immunizations No known immunizations Social History Tobacco UseTypesPacks/DayYears UsedDateSmoking Tobacco: FormerCigarettesQuit: 1984Smokeless Tobacco: NeverAlcohol UseStandard Drinks/WeekCommentsNot Currently 0 (1 standard drink = 0.6 oz pure alcohol)ChildcareAnswerDate RecordedChildcare Dpgjzme1901/29/2019EmploymentAnswerDate IlasespjOuquztpcpeRddcstm36/10/2019Sex and Gender InformationValueDate RecordedSex Assigned at BirthNot on fileLegal Sex Male03/25/2015 1:22 PM EDTGender IdentityNot on fileSexual OrientationNot on file Last Filed Vital Signs Vital SignReadingTime TakenCommentsBlood Pncpybbe065/8604/30/2022 7:55 AM EDT Gotyo92598/09/2022 7:55 AM VNFVwujycxwrmp58.8 ??C (98.2 ??F)04/30/2022 3:58 AM EDTRespiratory Arew5123 7:55 AM EDTOxygen Oxnzltdkhh87%04/30/2022 7:55 AM EDTInhaled Oxygen Concentration--Ogpksm153.1 kg (231 lb 11.3 oz)04/28/2022 8:51 PM MRYHcdbgk690.9 cm (6')04/28/2022 8:51 PM EDTBody Mass Index31.42 04/28/2022 8:51 PM EDT Plan of Treatment Health MaintenanceDue DateLast DoneCommentsDepression Frtzdnwir96/04/1957Tobacco Ooqqrxmgi01/04/1957DTaP,Tdap and Td Vaccines (1 - Tdap)1963Zoster (Shingles) Vaccine (1 of 2)1994Fall Risk Qfantktjw38/04/2010RSV ( or age 60+ yrs) (1 - 1-dose 75+ series)2019Influenza Xifcgqk76/08/2024 Goals GoalPatient Goal TypeAssociated ProblemsRecent ProgressPatient-Stated?Author <enter goal here> Javed Jenkins LSW Note: Evaluation of progress towards goal: Return home with self care Medical Devices Not on file Insurance Advance Directives * Full Code (Latest Code Status on File) Date ActivatedDate InactivatedComments04/28/2022 9:20 PM04/30/2022 6:02 PM Care Teams Team MemberRelationshipSpecialtyStart DateEnd Date Romero Montoya MD [facility]08/22/21
--- OUTSIDE RECORDS SUMMARY | 2025-08-06 08:55 | XMS_ITS | Clinical Summary ---
Author Organization [facility] Address [address] [place] [address] Care Team Providers Care Blasting Clay Miner Name Role Phone Romero Montoya MD Primary Care Provider [phone] Allergies No known active allergies Medications MedicationSigDispense QuantityRefillsLast FilledStart DateEnd DateStatus atorvastatin (Lipitor) 40 mg tablet Take 40 mg by mouth at bedtime.Active furosemide (Lasix) 20 mg tablet Take 20 mg by mouth in the morning.Active metFORMIN (Glucophage) 500 mg tablet Take 500 mg by mouth with breakfast and with evening meal.Active omeprazole (PriLOSEC) [address] capsule Take 40 mg by mouth before breakfast. Do not crush or chew.Active clopidogrel (Plavix) 75 mg tablet Take by mouth in the morning.Active glipiZIDE (Glucotrol) 10 mg tablet Take 10 mg by mouth before breakfast and before evening meal.Active lisinopril 20 mg tablet Indications:Benign hypertensive heart disease with heart failure (CMS/HCC)Take 1 tablet by mouth once daily 90 tablet ctive metoprolol succinate XL (Toprol-XL) 50 mg 24 hr tablet Indications:Atypical atrial flutter (CMS/HCC)Take 1 tablet (50 mg) by mouth in the morning. 90 tablet ctive metoprolol succinate XL (Toprol-XL) 50 mg 24 hr tablet Indications:Atypical atrial flutter (CMS/HCC)Take 1 tablet (50 mg) by mouth in the morning. 90 tablet Discontinued Active Problems ProblemNoted DateDiagnosed DateEncounter for long-term current use of medication 12/14/2023Gastroesophageal reflux aqfcddh9212/14/2023Obesity (BMI 30-39.9) 4Primary osteoarthritis of left zmnqyqdc30/24/2024Screening PSA (prostate specific antigen)12/14/2023Stage 3b chronic kidney disease (CKD) 12/14/2023Type 2 diabetes mellitus with hyperglycemia, without long-term current use of zozbrxe3012/14/2023Vitamin D qvebzyriek84/24/2024Class 1 obesity due to excess calories with serious comorbidity and body mass index (BMI) of 33.0 to 33.9 in adult4Cryptogenic afavhi3406/23/2022 Overview (06/23/2022): Added automatically from request for surgery [id number] Lkxenppezmkl70/28/2022 Overview (06/18/2022): Added automatically from request for surgery [id number] Recent cerebrovascular borqjhwd89/07/2022Atrial ynacvnv13/07/2022Diastolic heart qdwwuwx44/11/2022Benign hypertensive heart and kidney disease without heart failure and with chronic kidney disease stage V or end stage renal disease(404.12)8764Hclqxfljumay39/11/2022Dyspnea on ftumgjjj79/11/2022 Ythwucs7105/02/2022Essential xexwucxcybfa79/11/2022TIA (transient ischemic attack) 2Diabetes mellitus type II, non insulin coicreazc95/11/2022Chronic kidney bllhdhi93/23/2022Dupuytren's uxobmgxygzo62/31/2019 Overview (09/03/2024): L hand small finger dupuytrens ; Endophthalmitis, right eye Encounters DateTypeDepartmentCare QcwzMlyfdbxwogr27/17/2025[facility] [place] [address] [place] [address] Matt Camargo MD Atypical atrial flutter (CMS/HCC)05/31/2025 7:30 AM EDTAncillary Procedure [facility] [address] [place] [address] Awareness of fcbcxxpaxn37/03/2025Orders Only [facility] [address] [place] [phone] Matt Camargo MD from Last 3 Months Family History Medical HistoryRelationNameCommentsHeart attackBrotherHeart failureMother RelationNameStatusCommentsBrotherFatherDeceasedMotherDeceased Social History Tobacco UseTypesPacks/DayYears UsedDateSmoking Tobacco: FormerCigarettes Smokeless Tobacco: Never Tobacco Cessation:Counseling Given: Not Answered Alcohol UseStandard Drinks/WeekCommentsNot Currently0 (1 standard drink = 0.6 oz pure alcohol)UT Safety & EnvironmentAnswerDate RecordedFear of Current or Ex-PartnerNot on file10/13/2023Emotionally AbusedNot on file10/13/2023hysically AbusedNot on file10/13/2023Sexually AbusedNot on file10/13/2023hysically or Sexually AbusedNot on file10/13/2023Sex and Gender InformationValueDate Recorded Sex Assigned at BirthNot on fileLegal AqaRjyf3703/29/2022 12:58 PM EDTGender IdentityChoose not to fhmvwzyy09/15/2025 9:13 PM EDTSexual OrientationChoose not to yqjbiips34/15/2025 9:13 PM EDT Last Filed Vital Signs Vital SignReadingTime TakenCommentsBlood Dldsbsng396/7007 10:22 AM EDT Rhsua338702/26/2025 10:22 AM EDTTemperature--Respiratory Rate--Oxygen Saturation 96%02/26/2025 10:22 AM EDTInhaled Oxygen Concentration--Xdrgmm855 kg (248 lb) 02/26/2025 10:22 AM YBXLhvsdc992.9 cm (6')02/26/2025 10:22 AM EDTBody Mass Index 33.6307 10:22 AM EDT Plan of Treatment Health MaintenanceDue DateLast DoneCommentsDiabetes: Hemoglobin A1C1944 Medicare Annual Wellness (AWV)1944Diabetes: Retinopathy Screening 1954Depression Entnloaqq41/04/1957Diabetes: Urine Protein Screening 1963Adult Gxelsye7608/25/1966Zoster Vaccines (1 of 2)1994Fall Risk Uklcuxenm04/04/2010COVID-19 Vaccine ( season)2025Influenza Vaccine (#1)2025Pneumococcal Vaccine: 50+ PjrfcTvazetjhn13/22/2025HIB VaccinesAged OutNo longer eligible based on patient's age to complete this topic HPV VaccinesAged OutNo longer eligible based on patient's age to complete this topicIPV VaccinesAged OutNo longer eligible based on patient's age to complete this topicMeningococcal B VaccineAged OutNo longer eligible based on patient's age to complete this topicMeningococcal VaccineAged OutNo longer eligible based on patient's age to complete this topicRotavirus VaccinesAged OutNo longer eligible based on patient's age to complete this topic Procedures Procedure NamePriorityDate/TimeAssociated DiagnosisCommentsCARDIAC DEVICE CHECK CHECK - RUAGKLRhlogvp29/13/2025 12:02 PM EST Awareness of heartbeats CARDIAC DEVICE CHECK - REMOTE - LOOP RECORDER (ILR)Prqrmel2305/24/2025 12:00 AM EDTfrom Last 3 Months Results * CARDIAC DEVICE CHECK - REMOTE - LOOP RECORDER (ILR) (07/04/2025 12:02 PM EST) Specimen (Source)Anatomical Location / LateralityCollection Method / Volume Collection TimeReceived Time Narrative Authorizing ProviderResult TypeResult StatusPaul Raman MDCV IMPLANTABLE CARDIAC DEVICE PROCEDURESFinal ResultPerforming OrganizationAddressCity/State/ZIP Code Phone Number CPACS * Cardiac device check - Remote loop recorder (ILR) (05/24/2025 12:00 AM EDT) Anatomical RegionLateralityModalityOtherSpecimen (Source)Anatomical Location / LateralityCollection Method / VolumeCollection TimeReceived Time05/24/2025 Narrative Authorizing ProviderResult TypeResult StatusPaul Raman MDCV IMPLANTABLE CARDIAC DEVICE PROCEDURESFinal Result from Last 3 Months Insurance * Guarantor: Back, ZebedeeAccount TypeRelation to PatientDate of BirthPhone Billing AddressPersonal/OfduftMxvc[address] [address] Care Teams Team MemberRelationshipSpecialtyStart DateEnd Date Romero Montoya MD [address] [place] [address] PCP - Bjdsaro04/7/22
== END 2025-08-06 08:50 | disposition home or self-care (01) ==
LOC: LAB 08:52
PROVIDERS: PCP Family Medicine; Visit Provider Family Medicine
DX: E11.65 Type 2 diabetes mellitus with hyperglycemia (principal)
CPT/HCPCS: 36415; 83036